=== PATIENT | female | born 1940 | race Caucasian/White ===

== ENCOUNTER 2022-11-13 17:14 | Emergency (ER) | payer MEDICARE, BC, SELFPAY ==
[2022-11-13 17:05] VITALS: BP 113/85; PULSE 71; RESP 20; TEMP 36.6; O2SAT 97; BMI 33.8
--- NOTE | 2022-11-13 17:14 | ED.GENADUL1 ---
HPI - General Adult General Chief complaint: Recheck/Abnormal Lab/Rx Stated complaint: bili drain issues Time Seen by Provider: 11/13/22 17:16 Source: patient Mode of arrival: ambulance Limitations: no limitations History of Present Illness HPI narrative: 82-year-old female presents because her biliary drain has not been draining. It seems like it's been like this for a few days. She doesn't seem to be complaining of abdominal pain. No fever or vomiting. She's not sure how long she's had any biliary drain, perhaps months but she's not sure. Related Data Allergies Allergy/AdvReac Type Severity Reaction Status Date / Time No Known Drug Allergies Allergy Verified 11/13/22 17:08 Review of Systems ROS Narrative A ten point review of systems is negative except as noted above. Exam Narrative Exam Narrative: Nurses note and vital signs reviewed and patient is not hypoxic. General: The patient appears well and in no apparent distress. Patient is resting comfortably on cart. Skin: Warm, dry, no pallor noted. There is no rash noted. Head: Normocephalic, atraumatic Eye: Normal conjunctiva, no drainage Ears, Nose, Mouth, and Throat: oral mucosa is moist. Nares patent. Cardiovascular: Regular Rate and Rhythm Respiratory: Patient is in no distress, no accessory muscle use, lungs are clear to auscultation, no wheezing, rales or rhonchi Back: non-tender GI: Normal bowel sounds, no tenderness to palpation, no masses appreciated. No rebound, guarding, or rigidity noted. Musculoskeletal: The patient has no evidence of calf tenderness, no pitting edema, symmetrical pulses noted bilaterally Neurological: A&O, normal speech Psychiatric: Cooperative Constitutional Vital Signs - 24 hr 11/13/22 17:05 Temperature 98 F Pulse Rate [Monitor] 71 Respiratory Rate 20 Blood Pressure [Left Arm] 113/85 H Pulse Oximetry 97 Oxygen Delivery Method Room Air Course Vital Signs Vital signs: Vital Signs Temperature 98 F 11/13/22 17:05 Pulse Rate 71 11/13/22 17:05 Respiratory Rate 20 11/13/22 17:05 Blood Pressure 113/85 H 11/13/22 17:05 Pulse Oximetry 97 11/13/22 17:05 Oxygen Delivery Method Room Air 11/13/22 17:05 Temperature 98 F 11/13/22 17:05 Pulse Rate 71 11/13/22 17:05 Respiratory Rate 20 11/13/22 17:05 Blood Pressure 113/85 H 11/13/22 17:05 Pulse Oximetry 97 11/13/22 17:05 Oxygen Delivery Method Room Air 11/13/22 17:05 Medical Decision Making MDM Narrative Medical decision making narrative: the patient's biliary drain is not functioning. Blood work is ordered and gallbladder ultrasound is ordered as well. The patient is signed out to Dr. Horton. Differential Diagnosis Differential Diagnosis: biliary drain blockage, biliary drain placement issue Lab Data Lab results reviewed: Yes I reviewed the patient's lab results Labs: Lab Results 11/13/22 Range/Units 17:45 WBC 9.6 (4.0-11.0) 10^3/uL RBC 3.19 L (4.20-5.40) 10^6/uL Hgb 9.5 L (12.0-16.0) g/dL Hct 29.7 L (36.0-48.0) % MCV 93.1 (81.0-99.0) fL MCH 29.8 (26.7-34.0) pg MCHC 32.0 (29.9-35.2) g/dL RDW 17.8 H (11.0-15.0) % Plt Count 245 (150-450) 10^3/uL MPV 9.8 (9.5-13.5) fL Neut % (Auto) 64.7 (43.0-75.0) % Lymph % (Auto) 24.2 (20.5-60.0) % [place] % (Auto) 9.4 (1.7-12.0) % Eos % (Auto) 0.9 (0.9-7.0) % Baso % (Auto) 0.4 (0.2-2.0) % Neut # (Auto) 6.2 (1.4-6.5) 10^3/uL Lymph # (Auto) 2.3 (1.2-3.8) 10^3/uL [place] # (Auto) 0.9 H (0.3-0.8) 10^3/uL Eos # (Auto) 0.1 (0.0-0.7) 10^3/uL Baso # (Auto) 0.0 (0.0-0.1) 10^3/uL Abs Immat Gran (auto) 0.04 H (0.00-0.03) 10^3/uL Imm/Tot Granulo (auto) 0.4 (0.0-0.5) % Sodium 136 (136-145) mmol/L Potassium 3.8 (3.5-5.1) mmol/L Chloride 97 L (98-107) mmol/L Carbon Dioxide 35.7 H (21.0-32.0) mmol/L Anion Gap 7.1 BUN 36.0 H (7.0-18.0) mg/dL Creatinine 1.65 H (0.55-1.02) mg/dL Est GFR ( Amer) 36 L (>=60) Est GFR (Non-Af Amer) 30 L (>=60) BUN/Creatinine Ratio 21.8 Glucose 117 H (74-106) mg/dL Calcium 9.0 (8.5-10.1) mg/dL Total Bilirubin 2.0 H (0.2-1.0) mg/dL AST 38 H (15-37) U/L ALT 24 (14-59) U/L Alkaline Phosphatase 274 H (46-116) U/L Total Protein 6.4 (6.4-8.2) g/dL Albumin 2.0 L (3.4-5.0) g/dL Globulin 4.4 g/dL Albumin/Globulin Ratio 0.5 Lipase 313.0 (73.0-393.0) U/L Discharge Plan Discharge Chief Complaint: Recheck/Abnormal Lab/Rx 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
--- NOTE | 2022-11-13 17:37 | PC.NURSE ---
Patient arrives from the [facility] with c/o biliary tube drainage issue. patient states, i've been telling the staff for 4 days that there is something wrong with the tube, but they would not listen. Patient reports that when the nurses attempt to flush the drain, it comes back out at me. patient reprot staff at the [facility] lost part of the tubing system. Patient endorses feeling some increase in distention over right lower quadrant since the drain stopped functioning and noticed that her eyes look more yellow. Patient noted to have general jaundiced appearance. Patient reports drain was placed at [facility]. This nurse attempted to call [facility] for report, spoke to Fadia, who states, the patient says its been going on for 4 days, but i don't see documentation on it. Fadia unable to give any information on I&O numbers for biliary drainage output and is poor historian on patient stating, i don't know, I've been gone all week, i am in the middle of a lot of things and dinner right now, when this nurse attempts to obtain more information about patient.
[2022-11-13 17:52] LABS: Basophils Percent Auto 0.4 % (0.2-2.0); Eosinophils Absolute Auto 0.1 10^3/uL (0.0-0.7); Eosinophils Percent Auto 0.9 % (0.9-7.0); Hematocrit 29.7 % (36.0-48.0); Hemoglobin 9.5 g/dL (12.0-16.0); Immature Granulocytes Abs Auto 0.04 10^3/uL (0.00-0.03); Immature Granulocytes Pct Auto 0.4 % (0.0-0.5); Lymphocytes Absolute Auto 2.3 10^3/uL (1.2-3.8); Lymphocytes Percent Auto 24.2 % (20.5-60.0); Mean Corpuscular Hemoglobin 29.8 pg (26.7-34.0); Mean Corpuscular Volume 93.1 fL (81.0-99.0); Mean Platelet Volume 9.8 fL (9.5-13.5); Monocytes Absolute Auto 0.9 10^3/uL (0.3-0.8); Monocytes Percent Auto 9.4 % (1.7-12.0); Neutrophils Absolute Auto 6.2 10^3/uL (1.4-6.5); Neutrophils Percent Auto 64.7 % (43.0-75.0); Platelet Count 245 10^3/uL (150-450); Red Blood Count 3.19 10^6/uL (4.20-5.40); Red Cell Distribution Width 17.8 % (11.0-15.0); White Blood Count 9.6 10^3/uL (4.0-11.0)
[2022-11-13 18:06] LABS: Alanine Aminotransferase 24 U/L (14-59); Albumin Globulin Ratio 0.5; Alkaline Phosphatase 274 U/L (46-116); Anion Gap 7.1; Aspartate Amino Transferase 38 U/L (15-37); BUN Creatinine Ratio 21.8; Carbon Dioxide 35.7 mmol/L (21.0-32.0); Chloride 97 mmol/L (98-107); Estimated GFR (African America 36 (>=60); Estimated GFR (Non-African Ame 30 (>=60); Globulin 4.4 g/dL; Glucose 117 mg/dL (74-106); Potassium 3.8 mmol/L (3.5-5.1); Sodium 136 mmol/L (136-145); Total Protein 6.4 g/dL (6.4-8.2)
--- NOTE | 2022-11-13 18:28 | US_ITS ---
[address] [address] Patient Name: BEATA MAC MRN: [id number] date: 1940 Sex: F Assigned Patient Location: ER Current Patient Location: .[facility] Accession/Order Number: [id number] Exam Date: 11/13/2022 19:11 Report Date: 11/13/2022 21:41 At the request of: GERI FARIA Procedure: US right upper quadrant RIGHT UPPER QUADRANT ULTRASOUND HISTORY: Suspected malfunctioning biliary drain COMPARISON: CT abdomen and pelvis 10/20/2022 TECHNIQUE: Sonography of the right upper quadrant was performed. Images were obtained and stored in a permanent archive. RESULTS: Pancreas: Normal sonographic appearance. Portions obscured: tail Liver: Echotexture: Normal, homogeneous. Echogenicity: Normal Surface contour: Smooth Lesions: None. Biliary: No intrahepatic biliary duct dilation. CBD: 5 cm at the hilum. Gallbladder: Fluid-filled distended gallbladder -Contents: Sludge present -Wall: Gallbladder wall thickening present -Other: No pericholecystic fluid. Positive Fofana sign. Right Kidney: No hydronephrosis. Ascites: Trace, perihepatic. Biliary drain catheter is noted adjacent to segment IV of the liver. IMPRESSION: 1. Distended gallbladder with moderate amount of sludge and mild wall thickening. Reported positive sonographic Fofana's sign. 2. Partially imaged biliary drain and trace perihepatic ascites. Electronically authenticated by: WILDA MCNAMARA Date: 11/13/2022 21:41
--- NOTE | 2022-11-13 19:08 | PC.NURSE ---
This nurse assumed care for pt Report recieved from LENI Munoz Pt currently resting comfortably with family at bedside Pt and family aware of plan for gallbladder ultrasound Pt does not appear to be in any discomfort and denies needs or questions at this time
--- NOTE | 2022-11-13 19:25 | PC.NURSE ---
US at bedside
--- NOTE | 2022-11-13 20:11 | PC.NURSE ---
US just left patients room Pt still resting comfortable denies needs at this time
--- NOTE | 2022-11-13 21:37 | ED_ITS ---
HPI - General Adult General Chief complaint: Recheck/Abnormal Lab/Rx Stated complaint: bili drain issues Time Seen by Provider: 11/13/22 17:16 Source: patient Mode of arrival: ambulance Limitations: no limitations History of Present Illness HPI narrative: 82-year-old female was signed out to me at shift change. She is here with her granddaughter. Granddaughter provides the recent history. The patient was at [facility] for a cardiac ablation and there was a complication. She had to undergo surgery and ended up with jaundice and a bilirubin at 20. They did not think she was a good surgical candidate for cholecystectomy and a biliary stent was placed. The stent has been in place for the past 4 weeks and 2 days. She initially had bloody and bilious output from the stent and then just bilious output. Stent was supposed to be flushed by the nursing staff where she currently resides but some of the staff was unfamiliar with the procedure and it was not flushed. For at least the past 4 days there has not been any output from the biliary stent. The patient was seen and evaluated. She is resting comfortably. She denies any abdominal pain or nausea. Her bilirubin today is 2. An ultrasound of the right upper quadrant was ordered due to her history of renal insufficiency. According to the granddaughter the stent is supposed to be in place for 6-8 weeks. The patient states she is feeling well and is feeling much better than she has been in the past several weeks. Ultrasound of the right upper quadrant shows a normal liver with no intrahepatic hepatic biliary ductal dilatation with common bile duct, fluid-filled distended gallbladder with sludge and gallbladder wall thickening with no cholecystic fluid. The surgeon of record, Dr. 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 Mejias, general surgery naval aircre[employer] who suggest that the patient can be discharged back to the extended care facility and can be followed up as an outpatient. I explained to the patient and daughter that as she is not having any signs of jaundice at this time they may remove the catheter when she is seen in follow-up. I encouraged them to return to the urgency department for increasing pain, fever, nausea vomiting, jaundice or any concerns. They're in agreement with this plan. Related Data Allergies Allergy/AdvReac Type Severity Reaction Status Date / Time No Known Drug Allergies Allergy Verified 11/13/22 17:08 Exam Constitutional Vital Signs - 24 hr 11/13/22 17:05 Temperature 98 F Pulse Rate [Monitor] 71 Respiratory Rate 20 Blood Pressure [Left Arm] 113/85 H Pulse Oximetry 97 Oxygen Delivery Method Room Air Course Vital Signs Vital signs: Vital Signs Temperature 98 F 11/13/22 17:05 Pulse Rate 71 11/13/22 17:05 Respiratory Rate 20 11/13/22 17:05 Blood Pressure 113/85 H 11/13/22 17:05 Pulse Oximetry 97 11/13/22 17:05 Oxygen Delivery Method Room Air 11/13/22 17:05 Temperature 98 F 11/13/22 17:05 Pulse Rate 71 11/13/22 17:05 Respiratory Rate 20 11/13/22 17:05 Blood Pressure 113/85 H 11/13/22 17:05 Pulse Oximetry 97 11/13/22 17:05 Oxygen Delivery Method Room Air 11/13/22 17:05 Medical Decision Making MDM Narrative Medical decision making narrative: See HPI/transfer note Lab Data Labs: Lab Results 11/13/22 Range/Units 17:45 WBC 9.6 (4.0-11.0) 10^3/uL RBC 3.19 L (4.20-5.40) 10^6/uL Hgb 9.5 L (12.0-16.0) g/dL Hct 29.7 L (36.0-48.0) % MCV 93.1 (81.0-99.0) fL MCH 29.8 (26.7-34.0) pg MCHC 32.0 (29.9-35.2) g/dL RDW 17.8 H (11.0-15.0) % Plt Count 245 (150-450) 10^3/uL MPV 9.8 (9.5-13.5) fL Neut % (Auto) 64.7 (43.0-75.0) % Lymph % (Auto) 24.2 (20.5-60.0) % Dickenson % (Auto) 9.4 (1.7-12.0) % Eos % (Auto) 0.9 (0.9-7.0) % Baso % (Auto) 0.4 (0.2-2.0) % Neut # (Auto) 6.2 (1.4-6.5) 10^3/uL Lymph # (Auto) 2.3 (1.2-3.8) 10^3/uL Dickenson # (Auto) 0.9 H (0.3-0.8) 10^3/uL Eos # (Auto) 0.1 (0.0-0.7) 10^3/uL Baso # (Auto) 0.0 (0.0-0.1) 10^3/uL Abs Immat Gran (auto) 0.04 H (0.00-0.03) 10^3/uL Imm/Tot Granulo (auto) 0.4 (0.0-0.5) % Sodium 136 (136-145) mmol/L Potassium 3.8 (3.5-5.1) mmol/L Chloride 97 L (98-107) mmol/L Carbon Dioxide 35.7 H (21.0-32.0) mmol/L Anion Gap 7.1 BUN 36.0 H (7.0-18.0) mg/dL Creatinine 1.65 H (0.55-1.02) mg/dL Est GFR ( Amer) 36 L (>=60) Est GFR (Non-Af Amer) 30 L (>=60) BUN/Creatinine Ratio 21.8 Glucose 117 H (74-106) mg/dL Calcium 9.0 (8.5-10.1) mg/dL Total Bilirubin 2.0 H (0.2-1.0) mg/dL AST 38 H (15-37) U/L ALT 24 (14-59) U/L Alkaline Phosphatase 274 H (46-116) U/L Total Protein 6.4 (6.4-8.2) g/dL Albumin 2.0 L (3.4-5.0) g/dL Globulin 4.4 g/dL Albumin/Globulin Ratio 0.5 Lipase 313.0 (73.0-393.0) U/L Discharge Plan Discharge Chief Complaint: Recheck/Abnormal Lab/Rx 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 Return to the emergency department for increasing pain, fever, nausea vomiting, jaundice or any concerns. Stand Alone Forms: Portal Instructions Referrals: Chi Jaimes MD [Primary Care Provider] - 1 week
== END 2022-11-13 23:10 ==
PROVIDERS: Emergency Medicine; Emergency Provider Emergency Medicine; PCP Family Medicine
DX: T85.698A Other mechanical complication of other specified internal prosthetic devices, implants and grafts, initial encounter (principal)
CPT/HCPCS: 36415; 76705; 80053; 83690; 85025; 99285

== ENCOUNTER 2022-12-24 07:41 | Day surgery (SDC) | payer MEDICARE, BC, SELFPAY ==
--- NOTE | 2022-12-24 07:49 | FL_ITS ---
The [address] [address] Patient Name: BEATA MAC MRN: [id number] date: 1940 Sex: F Assigned Patient Location: [place] Current Patient Location: [place] Accession/Order Number: [id number] Exam Date: 12/24/2022 08:10 Report Date: 12/24/2022 10:51 At the request of: NON-STAFF PHYSICIAN Procedure: FL fluoroscopy <1hr EXAMINATION: FL fluoroscopy <1hr HISTORY: Confirm Placement Of T Tube COMPARISON: No relevant comparison available. FLUOROSCOPY TIME: Fluoro time measures 0.5 minutes and 7 images were obtained. TECHNIQUE: Standard level fluoroscopic mode of operation utilized. FINDINGS: 1.5 cc Omnipaque 300 was injected through patient's catheter which is coiled within the gallbladder. Contrast was seen within the gallbladder, cystic duct and common bile duct with antegrade flow into the small bowel and retrograde flow into the liver. FL/FL fluoroscopy <1hr IMPRESSION: 1. Catheter remains coiled within the gallbladder. 2. Patent cystic and common bile duct. Electronically authenticated by: MAY MATTHEWS Date: 12/24/2022 10:51
--- NOTE | 2022-12-24 07:49 | XR_ITS ---
The [address] [address] Patient Name: BEATA MAC MRN: [id number] date: 1940 Sex: F Assigned Patient Location: [place] Current Patient Location: [place] Accession/Order Number: [id number] Exam Date: 12/24/2022 08:10 Report Date: 12/24/2022 10:51 At the request of: NON-STAFF PHYSICIAN Procedure: XR cholangiogram t tube EXAMINATION: FL fluoroscopy <1hr HISTORY: Confirm Placement Of T Tube COMPARISON: No relevant comparison available. FLUOROSCOPY TIME: Fluoro time measures 0.5 minutes and 7 images were obtained. TECHNIQUE: Standard level fluoroscopic mode of operation utilized. FINDINGS: 1.5 cc Omnipaque 300 was injected through patient's catheter which is coiled within the gallbladder. Contrast was seen within the gallbladder, cystic duct and common bile duct with antegrade flow into the small bowel and retrograde flow into the liver. XR/XR cholangiogram t tube IMPRESSION: 1. Catheter remains coiled within the gallbladder. 2. Patent cystic and common bile duct. Electronically authenticated by: MAY MATTHEWS Date: 12/24/2022 10:51
[2022-12-24 09:25] VITALS: BMI 27.1
== END 2022-12-24 09:00 ==
PROVIDERS: Radiology Diagnostic Radiology; PCP Family Medicine
DX: Z96.89 Presence of other specified functional implants (principal)
CPT/HCPCS: 47531; 76000; Q9967

== ENCOUNTER 2023-01-28 11:26 | Inpatient (IN) | payer MEDICARE, BC, SELFPAY ==
[2023-01-28] VITALS (83 sets, daily range): BP systolic 65–129; BP diastolic 42–93; PULSE 0–135; RESP 11–30; TEMP 36.5–36.8; O2SAT 85–100; BMI 31.4; BMI 32.9
--- NOTE | 2023-01-28 11:34 | ED.SOB1 ---
HPI - SOB/Dyspnea General Chief Complaint: Shortness of Breath/Dyspnea Stated Complaint: Cough SOB Time Seen by Provider: 01/28/23 11:34 History of Present Illness HPI Narrative: Patient presents to emergency department complaining of dyspnea. Patient states that short of breath and has been wheezing. She has increased lower extremity edema. She states she was nauseated and vomited one time this morning. She's had it productive cough for several days. Yesterday she was started on Levaquin had 1 dose yesterday and 1 today. Patient was recently discharged from the [facility] after a three-month stay from complications after at watchman procedure. Patient was given Solu-Medrol and a DuoNeb treatment in route. Patient does not have a history of lung disease. She takes Bumex 2 mg daily has not had any of her doses today. Family also states she was recently diagnosed with kidney disease Stage III. Related Data Home Medications Medication Instructions Recorded Confirmed Metoprolol 12.5 mg PO DAILY 12/24/22 12/24/22 Potassium chloride 40 meq PO DAILY 12/24/22 12/24/22 apixaban 2.5 mg tablet (Eliquis) 2.5 mg PO BID 12/24/22 12/24/22 bumetanide 2 mg tablet 2 mg PO DAILY 12/24/22 12/24/22 magnesium oxide 400 mg PO BID 12/24/22 12/24/22 polyethylene glycol 3350 17 17 g PO DAILY 12/24/22 12/24/22 gram/dose oral powder Allergies Allergy/AdvReac Type Severity Reaction Status Date / Time No Known Drug Allergies Allergy Verified 11/13/22 17:08 Review of Systems ROS Status of ROS 10 or more systems reviewed and unremarkable except as noted in history and below [facility] Medical History (Updated 01/28/23 @ 13:50 by Larissa Denson MD) Surgical History (Updated 12/24/22 @ 09:22 by Karey Turner) Social History Smoking status: Never smoker Exam Narrative Exam Narrative: Nurses notes and vital signs reviewed and patient is not hypoxic. General: Nontoxic,Elderly, frail, chronically ill and in no apparent distress. Skin: Warm, dry, mild pallor noted. No Rash Head: Normocephalic, atraumatic. Neck: Supple, non-tender. Eye: Pupils are equal, round and EOMI. No scleral icterus. Ears, Nose, Mouth, and Throat: TM clear, no posterior oropharynx erythema or nasal mucosal hypertrophy, uvula is mid-line Oral mucosa is moist Cardiovascular: Irregularly irregular tachycardia without murmur, gallop or rub. Respiratory: No accessory muscle use or respiratory distress. Lungs Lateral coarse crackles at the bases with expiratory wheeze worse on the right. Chest Wall: no tenderness Back: No midline thoracic or lumbar vertebral tenderness. No CVA tenderness Musculoskeletal: normal ROM, no calf or popliteal tenderness,+3 bilateral lower extremity edema/swelling GI: Abdomen is soft, non-distended. Normal bowel sounds. No tenderness to palpation. No rebound, guarding, or rigidity noted. Neurological: A&O x4. No cranial nerve dysfunction observed. No truncal ataxia. Moves all extremities. Sensation intact. Psychiatric: Cooperative and interactive. Normal mood and affect. Constitutional Vital Signs, click to edit/add: Last Vital Signs Temp 98 F 01/28/23 11:32 Pulse 107 H 01/28/23 13:00 Resp 16 01/28/23 13:00 BP 114/89 01/28/23 11:37 Pulse Ox 99 01/28/23 13:00 O2 Del Method Room Air 01/28/23 11:32 Course Vital Signs Vital signs: Vital Signs Temperature 98 F 01/28/23 11:32 Pulse Rate 125 H 01/28/23 11:32 Respiratory Rate 24 01/28/23 11:32 Blood Pressure 114/89 01/28/23 11:32 Pulse Oximetry 99 01/28/23 11:32 Oxygen Delivery Method Room Air 01/28/23 11:32 Temperature 98 F 01/28/23 11:32 Pulse Rate 107 H 01/28/23 13:00 Respiratory Rate 16 01/28/23 13:00 Blood Pressure 114/89 01/28/23 11:37 Pulse Oximetry 99 01/28/23 13:00 Oxygen Delivery Method Room Air 01/28/23 11:32 MDM - SOB/Dyspnea MDM Narrative Medical decision making narrative: iv established. The patient does not require Supplementary oxygen. Patient was given 2 mg of bumex, started on Zosyn, Levaquin. all RESULTS were discussed with patient and family. The patient was discussed with Dr. Jaimes for admission. Differential Diagnosis Differential diagnosis: Likely congestive heart failure Medical Records Attestation: I reviewed the patient's medical records. Lab Data Attestation: I reviewed the patient's lab results. Labs: Lab Results 01/28/23 Range/Units 12:30 WBC 9.4 (4.0-11.0) 10^3/uL RBC 3.99 L (4.20-5.40) 10^6/uL Hgb 11.6 L (12.0-16.0) g/dL Hct 37.5 (36.0-48.0) % MCV 94.0 (81.0-99.0) fL MCH 29.1 (26.7-34.0) pg MCHC 30.9 (29.9-35.2) g/dL RDW 18.2 H (11.0-15.0) % Plt Count 260 (150-450) 10^3/uL MPV 9.8 (9.5-13.5) fL Neut % (Auto) 85.9 H (43.0-75.0) % Lymph % (Auto) 6.8 L (20.5-60.0) % Stevens % (Auto) 6.9 (1.7-12.0) % Eos % (Auto) 0.0 L (0.9-7.0) % Baso % (Auto) 0.1 L (0.2-2.0) % Neut # (Auto) 8.1 H (1.4-6.5) 10^3/uL Lymph # (Auto) 0.6 L (1.2-3.8) 10^3/uL Stevens # (Auto) 0.7 (0.3-0.8) 10^3/uL Eos # (Auto) 0.0 (0.0-0.7) 10^3/uL Baso # (Auto) 0.0 (0.0-0.1) 10^3/uL Abs Immat Gran (auto) 0.03 (0.00-0.03) 10^3/uL Imm/Tot Granulo (auto) 0.3 (0.0-0.5) % Sodium 138 (136-145) mmol/L Potassium 3.8 (3.5-5.1) mmol/L Chloride 98 (98-107) mmol/L Carbon Dioxide 32.7 H (21.0-32.0) mmol/L Anion Gap 11.1 BUN 39.0 H (7.0-18.0) mg/dL Creatinine 2.35 H (0.55-1.02) mg/dL Est GFR ( Amer) 24 L (>=60) Est GFR (Non-Af Amer) 20 L (>=60) BUN/Creatinine Ratio 16.6 Glucose 126 H (74-106) mg/dL Calcium 9.9 (8.5-10.1) mg/dL Total Bilirubin 1.8 H (0.2-1.0) mg/dL AST 51 H (15-37) U/L ALT 34 (14-59) U/L Alkaline Phosphatase 171 H (46-116) U/L Troponin I High Sens 41.6 (4.0-51.3) pg/mL NT-Pro-B Natriuret Pep >14866.0 H* (<=1800.0) pg/mL Total Protein 6.7 (6.4-8.2) g/dL Albumin 3.0 L (3.4-5.0) g/dL Globulin 3.7 g/dL Albumin/Globulin Ratio 0.8 ECG Data Attestation: I personally reviewed and interpreted this ECG as follows: Discharge Plan Discharge Chief Complaint: Shortness of Breath/Dyspnea Clinical Impression: Congestive heart failure, Atrial fibrillation, Chronic kidney disease (CKD), Pneumonia Patient Disposition: Admitted As Inpatient Time of Disposition Decision: 13:50 Condition: Good Prescriptions / Home Meds: No Action bumetanide 2 mg tablet 2 mg PO DAILY Eliquis 2.5 mg tablet 2.5 mg PO BID magnesium oxide 400 mg magnesium tablet 400 mg PO BID Metoprolol 12.5 mg PO DAILY polyethylene glycol 3350 17 gram/dose powder 17 g PO DAILY Potassium chloride 40 meq PO DAILY
--- NOTE | 2023-01-28 11:54 | XR_ITS ---
The [address] [address] Patient Name: BEATA MAC MRN: [id number] date: 1940 Sex: F Assigned Patient Location: ER Current Patient Location: ER Accession/Order Number: [id number] Exam Date: 01/28/2023 12:20 Report Date: 01/28/2023 12:37 At the request of: BENJAMIN GRAHAM Procedure: XR chest 1V EXAM: XR chest 1V at 1230 hours HISTORY: dyspnea COMPARISON: 08/24/2022 TECHNIQUE: AP upright portable chest x-ray FINDINGS: Opacities are seen at both lung bases, indicating atelectasis or infiltrates. These are accompanied by bilateral effusions. The upper lungs are clear. The heart appears mildly enlarged without overt cardiac decompensation. Multiple sternal wire sutures are present as well as a left-sided pacemaker. The osseous structures are grossly intact. XR/XR chest 1V IMPRESSION: Atelectasis or infiltrates at both lung bases accompanied by small bilateral effusions. The overall appearance is slightly worse than seen in the prior study. Electronically authenticated by: BRYAN NICHOLE Date: 01/28/2023 12:37
--- NOTE | 2023-01-28 11:54 | ECG_ITS ---
The [facility] Test Date: 2023-01-28 Pat Name: BEATA MAC Department: Room: - Gender: Female Head Silverman: : 1940 Requested By: CATHLEEN BOO Order Number: [id number] Reading MD: CATHLEEN BOO Measurements Intervals [place] Rate: 118 P: -89580 NH: -69808 QRS: 133 QRSD: 112 T: 244 QT: 328 QTc: 398 Interpretive Statements 32040 Atrial fibrillation with rapid ventricular response 3114 Cannot rule out anterior myocardial infarction, age undetermined [address] depression, probably digitalis effect 13559 Twave abnormality, possible inferior ischemia or digitalis effect 5120 Possible right ventricular hypertrophy 9150 abnormal ECG No previous ECG available for comparison Electronically Signed On 01-31-2023 7:42:02 EDT by CATHLEEN BOO
[2023-01-28] MEDS: METOPROLOL TARTRATE 5 MG/5 ML VIAL IVP (12:16)
[2023-01-28] MEDS: BUMETANIDE 1 MG/4 ML VIAL 2 MG IVP (12:16)
[2023-01-28 12:46] LABS: Basophils Percent Auto 0.1 % (0.2-2.0); Hematocrit 37.5 % (36.0-48.0); Hemoglobin 11.6 g/dL (12.0-16.0); Immature Granulocytes Abs Auto 0.03 10^3/uL (0.00-0.03); Immature Granulocytes Pct Auto 0.3 % (0.0-0.5); Lymphocytes Absolute Auto 0.6 10^3/uL (1.2-3.8); Lymphocytes Percent Auto 6.8 % (20.5-60.0); Mean Corpuscular HGB Conc 30.9 g/dL (29.9-35.2); Mean Corpuscular Hemoglobin 29.1 pg (26.7-34.0); Mean Platelet Volume 9.8 fL (9.5-13.5); Monocytes Absolute Auto 0.7 10^3/uL (0.3-0.8); Monocytes Percent Auto 6.9 % (1.7-12.0); Neutrophils Absolute Auto 8.1 10^3/uL (1.4-6.5); Neutrophils Percent Auto 85.9 % (43.0-75.0); Platelet Count 260 10^3/uL (150-450); Red Blood Count 3.99 10^6/uL (4.20-5.40); Red Cell Distribution Width 18.2 % (11.0-15.0); White Blood Count 9.4 10^3/uL (4.0-11.0)
[2023-01-28] MEDS: LEVOFLOXACIN IN DEXTROSE 5 % 500 MG/100 ML PIGGYBACK 100 MG IV (13:01)
[2023-01-28 13:04] LABS: Alanine Aminotransferase 34 U/L (14-59); Albumin Globulin Ratio 0.8; Alkaline Phosphatase 171 U/L (46-116); Anion Gap 11.1; Aspartate Amino Transferase 51 U/L (15-37); BUN Creatinine Ratio 16.6; Bilirubin Total 1.8 mg/dL (0.2-1.0); Calcium 9.9 mg/dL (8.5-10.1); Carbon Dioxide 32.7 mmol/L (21.0-32.0); Chloride 98 mmol/L (98-107); Estimated GFR (African America 24 (>=60); Estimated GFR (Non-African Ame 20 (>=60); Globulin 3.7 g/dL; Glucose 126 mg/dL (74-106); Potassium 3.8 mmol/L (3.5-5.1); Sodium 138 mmol/L (136-145); Total Protein 6.7 g/dL (6.4-8.2); Troponin I High Sensitivity 41.6 pg/mL (4.0-51.3)
[2023-01-28 13:12] LABS: NT Pro B Type Natriuretic Pept >35000.0 pg/mL (<=1800.0)
[2023-01-28] MEDS: PIPERACILLIN SODIUM/TAZOBACTAM 3.375 GM in 0.9 % SODIUM CHLORIDE 50 ML IV ×2 (14:04→21:20)
[2023-01-28 14:28] LABS: Lactate/Lactic Acid 3.3 mmol/L (0.4-2.0)
--- NOTE | 2023-01-28 14:40 | CA_ITS ---
Patient: BEATA MAC Exam Date: 01/29/2023 : 1940 Gender:F Ordering : DR Chi Jaimes . Admission #: [id number] Family : Order #: [id number] CLICK HERE TO VIEW EXAM ECHOCARDIOGRAM REPORT PROCEDURE: CA ECHO DOPPLER COMPLETE INDICATIONS: Dyspnea, elevated BNP, atrial fibrillation, congestive heart failure, chronic kidney disease COMPARISON: None. DESCRIPTION: COMPLETE ECHOCARDIOGRAM Real-time transthoracic echocardiography with 2D, M-mode, spectral and color flow Doppler performed. QUALITY: Technical quality was good. LEFT VENTRICLE: Mildly dilated. Thickened septal wall. Severely reduced systolic function. LV EF: Severely reduced left ventricular ejection fraction, (15-20%). DIASTOLIC: Not adequately assessed due to heart rhythm. ATRIAL SEPTUM: LEFT ATRIUM: Severe dilatation. RIGHT ATRIUM: Severe dilatation. RIGHT VENTRICLE: Mild dilatation. Mildly reduced systolic function. TRICUSPID VALVE: Normal mobility and thickness. No stenosis with mild regurgitation. Doppler studies reveal severely (>60) elevated right sided pressures. RVSP 62 mmHg MITRAL VALVE: Moderately thickened with decreased mobility. No evidence of mitral valve stenosis. Mild mitral annular calcification. Moderate to severe mitral regurgitation. AORTIC VALVE: Normal trileaflet appearance. Mildly calcified aortic valve. Mildly diminished mobility. No aortic valve stenosis. No aortic regurgitation. AORTIC ROOT: Normal diameter and appearance. PULMONIC VALVE: Normal thickness and mobility. No stenosis. Trivial regurgitation. PERICARDIUM: No evidence of pericardial effusion. IVC: Dilated IVC (2.5 cm) with no collapse. PLEURA: Left pleural effusion. CONCLUSION: 1. The left ventricle is mildly dilated and exhibits severely reduced systolic function. LVEF is 15 to 20%. 2. The right ventricle is mildly dilated with mildly reduced systolic function. 3. Moderate to severe mitral regurgitation. 4. Mild tricuspid regurgitation. 5. Severely elevated right-sided pressures. RVSP is 62 mmHg. 6. Large left pleural effusion is seen. Adult Echocardiography Procedure Report Left Ventricle LVEDD (3.7 - 5.6 cm): 4.34 cm LVESD (2.2 - 4.0 cm): 4.04 cm LVIVS thickness (0.6 - 1.2 cm): 1.09 cm LVPW thickness (0.5 - 1.0 cm): 0.83 cm LVOT Max Gradient: 2.92 mm[Hg], 2.20 mm[Hg] LVOT Area (cm2): 0.80 m/s Peak Velocity (LVOT): 0.85 m/s, 0.74 m/s Mean Velocity (LVOT): 0.49 m/s LVOT Diameter 2.20 cm Left Atrium LA Volume Index (2D A2C): 57.63 ml/m2 Left Atrium Systolic Dimension: 4.17 cm Mitral Valve Mitral Valve E-Wave Peak Velocity: 1.35 m/s Right Ventricle Aorta AO Root Diam: 3.04 cm Ascending Ao Diam: 2.70 cm Aortic Valve AoV Area (Peak Carrington): 2.00 cm2, 1.90 cm2, 1.81 cm2 AoV Area (VTI): 1.66 cm2, 1.39 cm2, 1.53 cm2 Peak Velocity(Antegrade Flow): 1.72 m/s, 1.56 m/s, 1.27 m/s Peak Gradient(Antegrade Flow): 11.81 mm[Hg], 9.74 mm[Hg], 6.49 mm[Hg] Mean Velocity(Antegrade Flow): 1.08 m/s, 0.99 m/s, 0.96 m/s Mean Gradient(Antegrade Flow): 5.42 mm[Hg], 4.55 mm[Hg], 3.98 mm[Hg] Velocity Time Integral: 27.83 cm, 24.45 cm, 16.57 cm Tricuspid Valve Peak Velocity (Regurgitant Flow): 3.09 m/s, 2.95 m/s, 3.12 m/s, 3.41 m/s Pulmonic Valve Peak Velocity: 0.75 m/s Peak Gradient: 1.67 mm[Hg], 1.26 mm[Hg], 4.18 mm[Hg], 2.27 mm[Hg] Right Atrium Right Atrium Systolic Pressure: 49.05 ml, 49.05 ml Dictated by: Asif Rivera M.D. on 01/29/2023 at 17:40 Approved by: Asif Rivera M.D. on 01/29/2023 at 17:48
--- NOTE | 2023-01-28 14:51 | US_ITS ---
The [address] [address] Patient Name: BEATA MAC MRN: [id number] date: 1940 Sex: F Assigned Patient Location: ICU Current Patient Location: ICU Accession/Order Number: [id number] Exam Date: 01/28/2023 15:00 Report Date: 01/28/2023 15:55 At the request of: CATHLEEN BOO Procedure: US right upper quadrant EXAM: US right upper quadrant HISTORY: elevated lft COMPARISON: None. TECHNIQUE: Real-time Limited abdomen ultrasound. Findings: Evaluation of pancreas is limited due to overlying bowel gas. The visualized portions are unremarkable. Unremarkable hepatic parenchymal echotexture. No focal intrahepatic mass. The main portal vein is patent and demonstrates hepatopedal flow. The gallbladder contains sludge. Mild gallbladder wall thickening. No pericholecystic fluid. The technologist reports a negative sonographic Fofana's sign. No biliary ductal dilatation. The common bile duct measures 0.4 cm. The right kidney measures 9.2 cm. There is good corticomedullary differentiation. No renal stones or collecting system dilatation. No focal mass or perinephric fluid collection. Right pleural effusion. US/US right upper quadrant IMPRESSION: 1. Right pleural effusion. 2. Sludge within the gallbladder. Gallbladder wall thickening. No significant pericholecystic fluid noted technologist reports a negative sonographic Fofana's sign. If further evaluation is warranted, suggest HIDA scan for further evaluation. Electronically authenticated by: DERRELL ALCALA Date: 01/28/2023 15:55
[2023-01-28 16:07] LABS: Bilirubin Urine NEGATIVE (NEGATIVE); Blood Urine NEGATIVE (NEGATIVE); Clarity Urine CLEAR (CLEAR); Color Urine LT. YELLOW (YELLOW); Glucose Urine UA NEGATIVE (NEGATIVE); Ketones Urine NEGATIVE (NEGATIVE); Leukocyte Esterase Urine SMALL (NEGATIVE); Nitrite Urine NEGATIVE (NEGATIVE); Protein Urine NEGATIVE (NEG/TRACE); Specific Gravity Urine 1.015 (1.005-1.025); Urobilinogen Urine 0.2 EU/dL (0.2-1.0)
--- NOTE | 2023-01-28 16:10 | W.PM.WC ---
Wound Consult Note Assessment and Plan (1) Sacral decubitus ulcer, stage II: Plan Patient seen today for consult with open area to sacral/coccyx area. Patient with known open ulcer in this area after an extended stay at a different hospital. Per patient/family via bedside RN, this area is improving. Upon assessment, patient has 2 small open areas on sacral/coccyx area that when measured as one are 1.7cmx0.8cm. The more proximal open area has depth and has a sinus/tunnel. The sinus is 1.8cm@4:00 and goes underneath the more distal open area. The distal ulcer is 100% slough covered. Area will most likely open and communicate with proximal ulcer if deteriorates. Today, medihoney gel with applied to the ulcers. Covered with an allevyn foam dressing. An additional dressing was provided to the ICU today. Patient's bilateral heels are intact. She appears to have a flattened blister on her right posterior thigh that is flat and intact. No treatment needed. Photo taken and orders in chart. Recommendations: Medihoney gel to sacral/coccyx ulcers daily. Tuck ribbon of packing strip lightly into depth/tunnel of more proximal open area. Change packing daily. Cover with allevyn foam. May peel back allevyn to change packing and apply medihoney daily. OK to reuse allevyn if not soiled and change every 3 days. Air mattress overlay, air cushion to chair. Reposition frequently. Thank you for consult. Please call [phone] with any questions or concerns.
[2023-01-28] MEDS: BUMETANIDE 10 MG in 0.9 % SODIUM CHLORIDE 160 ML 20 MG IV (16:14)
[2023-01-28 16:19] LABS: SARS-CoV-2 Ag NEGATIVE (NEGATIVE)
[2023-01-28 16:36] LABS: Creatine Kinase 23 U/L (26-192); Creatine Kinase MB 0.86 ng/mL (<=3.60); Magnesium 1.4 mg/dL (1.8-2.4); Thyroid Stimulating Hormone <0.007 uIU/mL (0.358-3.740); Troponin I High Sensitivity 39.5 pg/mL (4.0-51.3)
[2023-01-28 16:40] LABS: Lactate/Lactic Acid 2.7 mmol/L (0.4-2.0)
[2023-01-28 16:55] LABS: RBC Urine 0-2 #/HPF (0-2)
[2023-01-28 16:56] LABS: Bacteria Urine TRACE #/HPF (NONE SEEN); Cast Seen? NONE SEEN #/LPF (NONE SEEN); Crystals Seen? None Seen #/HPF (None Seen); Mucus Urine NONE SEEN (NONE SEEN); Squamous Epithelial Cell Urine RARE #/LPF (NONE/RARE); Urine Culture Indicated ALREADY ORDERED
[2023-01-28] MEDS: PANTOPRAZOLE SODIUM 40 MG VIAL IV (17:00)
[2023-01-28] MEDS: CLINDAMYCIN PHOSPHATE/D5W 300 MG/50 ML PIGGYBACK 100 MG IV ×2 (17:00→21:21)
[2023-01-28] MEDS: BENZONATATE 100 MG CAPSULE 200 MG PO (17:08)
--- NOTE | 2023-01-28 17:13 | P.HP_ITS ---
H&P: HPI History of Present Illness Chief complaint: Cough SOB, AFIB, PNEUMONIA, CHF, CKD Narrative: Patient presented to the emergency with increasing shortness of breath. There was a call to the office with increasing swelling and shortness of breath the previous day, and a trial of oral diuretic, with no improvement having audible wheezes patient was referred to the emergency room. In the emergency room found to have bilateral opacities consistent with pneumonia but also elevated BNP. Positive UA. Patient admitted to the ICU. Review of Systems ROS Constitutional Denies: fever or chills Eyes Denies: change in vision Ears, nose, mouth, and throat Denies: throat pain Cardiovascular Reports: edema and swelling of feet/ankles; Denies: chest pain Respiratory Reports: shortness of breath, cough and wheezing Musculoskeletal Denies: back pain Integumentary/Breast Denies: rash PFSH [facility] Medical History (Updated 01/28/23 @ 13:50 by Larissa Denson MD) Surgical History (Updated 12/24/22 @ 09:22 by Karey Turner) Social History Smoking status: Never smoker Meds Home Medications and Allergies Home Medications Medication Instructions Recorded Confirmed Type Metoprolol 12.5 mg PO DAILY 12/24/22 01/28/23 History Potassium chloride 20 meq PO DAILY 12/24/22 01/28/23 History apixaban 2.5 mg tablet (Eliquis) 2.5 mg PO BID 12/24/22 01/28/23 History bumetanide 2 mg tablet 1 mg PO Q12H 12/24/22 01/28/23 History magnesium oxide 400 mg PO BID 12/24/22 01/28/23 History polyethylene glycol 3350 17 17 g PO DAILY 12/24/22 12/24/22 History gram/dose oral powder hydroxyzine pamoate 25 mg capsule 25 mg PO Q6H PRN anxiety 01/28/23 01/28/23 History levofloxacin 750 mg tablet 750 mg PO Q24H 01/28/23 01/28/23 History midodrine 5 mg tablet 5 mg PO BID PRN SBP <100 01/28/23 01/28/23 History Allergies Allergy/AdvReac Type Severity Reaction Status Date / Time No Known Drug Allergies Allergy Verified 11/13/22 17:08 Exam Constitutional Vital Signs, click to edit/add: Last Vital Signs Temp 98.2 F 01/28/23 14:09 Pulse 100 H 01/28/23 14:40 Resp 19 01/28/23 14:40 BP 112/71 01/28/23 14:40 Pulse Ox 99 01/28/23 14:40 O2 Del Method Room Air 01/28/23 14:40 [facility] Common normals: normocephalic Chest Common normals: inspection of chest normal Respiratory Effort & inspection: able to speak in complete sentences Auscultation: rhonchi and egophony Cardio Rate: tachycardic Rhythm: abnormal rhythm GI Common normals: Normal to inspection, nondistended, normoactive bowel sounds present Extremity Common normals: abnormal to inspection and pedal edema General: edema Results Labs Labs: Short CBC 01/28/23 Range/Units 12:30 WBC 9.4 (4.0-11.0) 10^3/uL Hgb 11.6 L (12.0-16.0) g/dL Hct 37.5 (36.0-48.0) % Plt Count 260 (150-450) 10^3/uL BMP 01/28/23 12:30 Sodium 138 Potassium 3.8 Chloride 98 Carbon Dioxide 32.7 H BUN 39.0 H Creatinine 2.35 H Glucose 126 H Calcium 9.9 Cardiac Enzymes 01/28/23 Range/Units 15:52 Total Creatine Kinase 23 L (26-192) U/L CK-MB (CK-2) 0.86 (<=3.60) ng/mL Liver Function 01/28/23 Range/Units 12:30 Total Bilirubin 1.8 H (0.2-1.0) mg/dL AST 51 H (15-37) U/L ALT 34 (14-59) U/L Alkaline Phosphatase 171 H (46-116) U/L Albumin 3.0 L (3.4-5.0) g/dL Urine 01/28/23 Range/Units 15:45 Urine Color Lt. 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 With her immune system being stressed with long-term illness and her age she is unlikely to develop significantly elevated white blood cell count. Need to treat aggressively with IV antibiotics [facility]. Complicated by acute combined congestive heart failure-IV antibiotics. As needed aerosols, try to obtain sputum sample. Acute combined congestive heart failure-check echocardiogram, check thyroid profile, monitor daily, check troponins, consult cardiology Elevated LFTs-this is a long-term issue for her. Some point she is post to have her gallbladder removed. Ultrasound right upper quadrant shows no acute cholecystitis. Monitor daily TSH significantly low-she does not take supplemental thyroid medications according to her current list. Will check with pharmacy. T4 and T3 levels are pending Iron deficiency anemia-monitor daily Morbid obesity-diet management Acute UTI-culture pending Bilateral pleural effusion secondary to acute combined congestive heart failure- monitor pulse oximetry, consider repeat chest x-ray Hypomagnesemia-supplement
[2023-01-28] MEDS: ONDANSETRON PF 4 MG/2 ML VIAL IV (17:32)
[2023-01-28 19:04] LABS: SARS-CoV-2 NAA NOT DETECTED (NOT DETECTE)
--- NOTE | 2023-01-28 19:54 | PC.NURSE ---
Patient's oxygen saturation on room air was 87%. Applied 2liters oxygen via nasal cannula. Will continue to monitor and titrate Patient's O2 sats.
[2023-01-28 20:13] LABS: Adenovirus NOT DETECTED (NOT DETECTE); Bordetella parapertussis NOT DETECTED (NOT DETECTE); Coronavirus 229E NOT DETECTED (NOT DETECTE); Coronavirus HKU1 NOT DETECTED (NOT DETECTE); Coronavirus NL63 NOT DETECTED (NOT DETECTE); Coronavirus OC43 NOT DETECTED (NOT DETECTE); Human Metapneumovirus NOT DETECTED (NOT DETECTE); Influenza A NOT DETECTED (NOT DETECTE); Influenza B NOT DETECTED (NOT DETECTE); Mycoplasma pneumoniae NOT DETECTED (NOT DETECTE); Parainfluenza Virus 1 NOT DETECTED (NOT DETECTE); Parainfluenza Virus 2 NOT DETECTED (NOT DETECTE); Parainfluenza Virus 3 NOT DETECTED (NOT DETECTE); Parainfluenza Virus 4 NOT DETECTED (NOT DETECTE); Respiratory Syncytial Virus NOT DETECTED (NOT DETECTE); SARS-CoV-2 NOT DETECTED (NOT DETECTE)
[2023-01-28 21:06] LABS: Human Rhinovirus/Enterovirus DETECTED (NOT DETECTE)
[2023-01-28] MEDS: POTASSIUM CHLORIDE 10 MEQ ER TABLET 20 MEQ PO (21:18)
[2023-01-28] MEDS: MAGNESIUM OXIDE 400 MG TABLET PO (21:18)
[2023-01-28] MEDS: APIXABAN 5 MG TABLET 2.5 MG PO (21:19)
[2023-01-28] MEDS: PROSTAT 15 GM PROTEIN/100 CAL 30 ML LIQUID PACKET FEED TUBE (21:20)
[2023-01-28] MEDS: L. ACIDOPHILUS/L.BULGARICUS 1 PACKET GRAN.PACK PO (21:20)
--- NOTE | 2023-01-28 21:53 | PC.NURSE ---
RT decreased oxygen to 1 liter d/t spo2 100%. Will titrate accordingly.
--- NOTE | 2023-01-28 21:56 | RESP.RT ---
Titrated to 1 lpm
--- NOTE | 2023-01-28 21:58 | PC.NURSE ---
Titrated oxygen off. Will continue to monitor.
--- NOTE | 2023-01-28 21:58 | RESP.RT ---
Titrated to 1 lpm
[2023-01-28] MEDS: LEVALBUTEROL HCL 0.63 MG/3 ML VIAL.NEB IH (22:46)
[2023-01-28] MEDS: IPRATROPIUM BROMIDE 0.5 MG/2.5 ML VIAL.NEB IH (22:46)
--- NOTE | 2023-01-28 23:31 | PC.NURSE ---
Applied 1 liter oxygen,SPO2 86%
--- NOTE | 2023-01-28 23:33 | PC.NURSE ---
1 liter intervention maintaining sats to 93-95 %
[2023-01-29] VITALS (98 sets, daily range): BP systolic 95–120; BP diastolic 65–90; PULSE 91–139; RESP 2–28; TEMP 36.3–36.7; O2SAT 86–100; BMI 32.8
[2023-01-29] MEDS: DILTIAZEM HCL 25 MG/5 ML VIAL 10 MG IV (00:38)
[2023-01-29] MEDS: CLINDAMYCIN PHOSPHATE/D5W 300 MG/50 ML PIGGYBACK 100 MG IV ×2 (04:22→16:06)
[2023-01-29] MEDS: MAGNESIUM OXIDE 400 MG TABLET PO ×2 (05:08→14:43)
[2023-01-29 05:41] LABS: Magnesium 1.4 mg/dL (1.8-2.4)
[2023-01-29 05:43] LABS: NT Pro B Type Natriuretic Pept >35000.0 pg/mL (<=1800.0)
--- NOTE | 2023-01-29 06:30 | PC.NURSE ---
Patient c/o right shoulder pain/weakness d/t arthritis
--- NOTE | 2023-01-29 07:26 | XR_ITS ---
The [address] [address] Patient Name: BEATA MAC MRN: [id number] date: 1940 Sex: F Assigned Patient Location: ICU Current Patient Location: ICU Accession/Order Number: [id number] Exam Date: 01/29/2023 08:00 Report Date: 01/29/2023 08:46 At the request of: CATHLEEN BOO Procedure: XR chest 2V EXAMINATION: XR chest 2V HISTORY: pneumonia, chf COMPARISON: XR chest 01/28/2023 FINDINGS: LUNGS: Dense infiltrates within the lung bases. Upper lung regions are clear. VASCULATURE: No increased pulmonary vasculature. PLEURA: Moderate bilateral pleural effusions. CARDIAC: No cardiomegaly or cardiac silhouette abnormality. MEDIASTINUM: Prior sternotomy. No abnormal widening. BONES: No fracture or visible bone lesion. OTHER: Stable cardiac pacer. XR/XR chest 2V IMPRESSION: 1. Grossly stable moderate bilateral pleural effusions and moderate bibasilar infiltrates versus atelectasis. Electronically authenticated by: MAY MATTHEWS Date: 01/29/2023 08:46
--- NOTE | 2023-01-29 07:28 | P.PN_ITS ---
Progress Note: Subjective Subjective Interval history: States she feels better, was coughing more overnight time. Still nonproductive, did have some hypoxia and placed on supplemental oxygen, although oxygen levels are improved this morning Exam Narrative Exam Narrative: Thinning hair on scalp Constitutional Vital Signs, click to edit/add: Last Vital Signs Temp 98.1 F 01/29/23 04:00 Pulse 113 H 01/29/23 06:30 Resp 21 01/29/23 06:30 BP 115/90 01/29/23 06:00 Pulse Ox 93 L 01/29/23 06:30 O2 Del Method Room Air 01/29/23 06:23 O2 Flow Rate 0.5 01/29/23 05:32 [facility] Common normals: normocephalic Chest Common normals: inspection of chest normal Respiratory Effort & inspection: able to speak in complete sentences Auscultation: rhonchi and egophony Cardio Rate: tachycardic Rhythm: abnormal rhythm GI Common normals: Normal to inspection, nondistended, normoactive bowel sounds present Back & Pelvis Lumbar spine/lower back: abnormal to inspection Pelvis: buttock abnormal (See notes from consultation) Extremity Common normals: abnormal to inspection and pedal edema General: edema Progress Note: Objective Labs Labs: Short CBC 01/28/23 Range/Units 12:30 WBC 9.4 (4.0-11.0) 10^3/uL Hgb 11.6 L (12.0-16.0) g/dL Hct 37.5 (36.0-48.0) % Plt Count 260 (150-450) 10^3/uL BMP 01/28/23 12:30 Sodium 138 Potassium 3.8 Chloride 98 Carbon Dioxide 32.7 H BUN 39.0 H Creatinine 2.35 H Glucose 126 H Calcium 9.9 Cardiac Enzymes 01/28/23 Range/Units 15:52 Total Creatine Kinase 23 L (26-192) U/L CK-MB (CK-2) 0.86 (<=3.60) ng/mL Liver Function 01/28/23 Range/Units 12:30 Total Bilirubin 1.8 H (0.2-1.0) mg/dL AST 51 H (15-37) U/L ALT 34 (14-59) U/L Alkaline Phosphatase 171 H (46-116) U/L Albumin 3.0 L (3.4-5.0) g/dL Urine 01/28/23 Range/Units 15:45 Urine Color Lt. yellow (YELLOW) Urine Clarity Clear (CLEAR) Urine pH 6.0 (5.0-9.0) Ur Specific [place] 1.015 (1.005-1.025) Urine Protein Negative (NEG/TRACE) mg/dL Urine Glucose (UA) Negative (NEGATIVE) mg/dL Progress Note: A&P Assessment and Plan (1) Congestive heart failure: (2) Atrial fibrillation: (3) Chronic kidney disease (CKD): (4) Pneumonia: (5) Sacral decubitus ulcer, stage II: (6) Anxiety: (7) Hyperthyroidism determined by thyroid function test: Plan Tachycardia with atrial fibrillation and respiratory distress secondary to bibasilar pneumonia with positive lactate. With her immune system being stres sed with long-term illness and her age she is unlikely to develop significantly elevated white blood cell count. Need to treat aggressively with IV antibiotics [facility]. Complicated by acute combined congestive heart failure-IV antibiotics. aerosols, try to obtain sputum sample. Repeat chest x-ray Acute combined congestive heart failure-check echocardiogram, check thyroid profile, monitor daily, check troponins, consult cardiology Acute hypothyroidism-discussed with granddaughter and this was to be worked up as an outpatient prior to all her chronic illness, never saw endocrinology, TSH nondetectable, T4 significantly elevated with the above symptoms with pending thyroid antibody testing we will start treatment today. Most likely Graves' disease Elevated LFTs-this is a long-term issue for her. Some point she is post to have her gallbladder removed. Ultrasound right upper quadrant shows no acute cholecystitis. Monitor daily TSH significantly low-she does not take supplemental thyroid medications according to her current list. Will check with pharmacy. T4 and T3 levels are pending Iron deficiency anemia-monitor daily Morbid obesity with moderate protein calorie malnutrition--diet management, add Ensure Acute UTI-culture pending Bilateral pleural effusion secondary to acute combined congestive heart failure- monitor pulse oximetry, consider repeat chest x-ray Hypomagnesemia-supplement With all the above issues, consult to cardiology today, echo pending, patient inpatient status. Maintain ICU secondary to hypoxia overnight, likely 3 to 4- day hospital stay
[2023-01-29 07:41] LABS: Hematocrit 33.3 % (36.0-48.0); Hemoglobin 10.5 g/dL (12.0-16.0); Immature Granulocytes Abs Auto 0.01 10^3/uL (0.00-0.03); Immature Granulocytes Pct Auto 0.3 % (0.0-0.5); Lymphocytes Absolute Auto 0.4 10^3/uL (1.2-3.8); Mean Corpuscular HGB Conc 31.5 g/dL (29.9-35.2); Mean Corpuscular Hemoglobin 29.4 pg (26.7-34.0); Mean Corpuscular Volume 93.3 fL (81.0-99.0); Mean Platelet Volume 10.3 fL (9.5-13.5); Monocytes Absolute Auto 0.3 10^3/uL (0.3-0.8); Monocytes Percent Auto 6.5 % (1.7-12.0); Neutrophils Absolute Auto 3.4 10^3/uL (1.4-6.5); Neutrophils Percent Auto 84.2 % (43.0-75.0); Platelet Count 255 10^3/uL (150-450); Red Blood Count 3.57 10^6/uL (4.20-5.40); Red Cell Distribution Width 17.9 % (11.0-15.0)
[2023-01-29 07:48] LABS: Alanine Aminotransferase 41 U/L (14-59); Albumin Globulin Ratio 0.8; Albumin Level 2.7 g/dL (3.4-5.0); Alkaline Phosphatase 156 U/L (46-116); Anion Gap 11.5; Aspartate Amino Transferase 59 U/L (15-37); BUN Creatinine Ratio 18.4; Bilirubin Total 1.5 mg/dL (0.2-1.0); Calcium 9.4 mg/dL (8.5-10.1); Carbon Dioxide 31.2 mmol/L (21.0-32.0); Chloride 99 mmol/L (98-107); Estimated GFR (African America 26 (>=60); Estimated GFR (Non-African Ame 21 (>=60); Globulin 3.4 g/dL; Glucose 169 mg/dL (74-106); Potassium 3.7 mmol/L (3.5-5.1); Sodium 138 mmol/L (136-145); Total Protein 6.1 g/dL (6.4-8.2)
[2023-01-29] MEDS: FUROSEMIDE 40 MG/4 ML VIAL IVP ×2 (08:31→19:45)
[2023-01-29] MEDS: SPIRONOLACTONE 25 MG TABLET PO (08:31)
[2023-01-29] MEDS: METOPROLOL SUCCINATE 25 MG TAB.ER.24H 50 MG PO (08:31)
[2023-01-29] MEDS: ENSURE HP 237 ML LIQUID PO (08:32)
[2023-01-29] MEDS: APIXABAN 5 MG TABLET 2.5 MG PO (08:32)
[2023-01-29] MEDS: L. ACIDOPHILUS/L.BULGARICUS 1 PACKET GRAN.PACK PO (08:32)
[2023-01-29] MEDS: PROSTAT 15 GM PROTEIN/100 CAL 30 ML LIQUID PACKET FEED TUBE (08:32)
[2023-01-29] MEDS: POTASSIUM CHLORIDE 10 MEQ ER TABLET 20 MEQ PO (08:32)
[2023-01-29] MEDS: IPRATROPIUM BROMIDE 0.5 MG/2.5 ML VIAL.NEB IH ×2 (09:24→21:06)
[2023-01-29] MEDS: LEVALBUTEROL HCL 0.63 MG/3 ML VIAL.NEB IH ×2 (09:24→21:05)
--- NOTE | 2023-01-29 09:30 | RESP.RT ---
Decreased to RA
[2023-01-29] MEDS: CLINDAMYCIN PHOSPHATE/D5W 300 MG/50 ML PIGGYBACK 50 MG IV (09:44)
--- NOTE | 2023-01-29 10:19 | PT.DAILY ---
Physical Therapy Daily Note PT Daily Note/Assess Start: 01/29/23 10:16 Freq: Status: Active Protocol: Document 01/29/23 10:16 FARRAH (Rec: 01/29/23 10:19 FARRAH [id number]) Physical Therapy Daily Note/Assessment Time In/Time Out Time In 09:50 Time Out 10:05 Pain In Pain N/A Pain Out Pain N/A Subjective Subjective Pt sitting in BS chair upon arrival. Agrees to PT. Sore buttock this morning. Therapeutic Exercise Time Therapeutic Exercise Minutes (minutes) 5 Therapeutic Exercise Units 0 Therapeutic Exercise Treatment Therapeutic Exercise Treatment Seated AP, LAQ, marches and add squeezes 10x ea to improve strength and functional mobility prior to gait. Therapeutic Activity Time Therapeutic Activity Minutes (minutes) 10 Therapeutic Activity Units 1 Therapeutic Activity Treatment Chair Transfer Ability Minimum Assist Therapeutic Activity Comments Sit>stand from BS chair with Guido. Once standing pt able to maintain balance using RW. Pt amb 1x 40' with RW, SBA. Seated rest. Then amb another 70' with RW, SBA. Pt on 2L O2 with activity - spo2 drops to 86% with activity but quickly recovers to 95% with seated rest and focusing on breathing . Returned to BS chair with call light in reach and needs met. Total Physical Therapy Time Total Therapy Minutes 15 Total Physical Therapy Units 1 Summary Daily Note Summary Improved tolerance with activity and endurance with gait.
[2023-01-29] MEDS: PIPERACILLIN SODIUM/TAZOBACTAM 3.375 GM in 0.9 % SODIUM CHLORIDE 50 ML IV (10:41)
--- NOTE | 2023-01-29 11:27 | SWNOTE1 ---
SW met with pt to discuss dc needs. Pt lives at home and she has had several family members stay with her on various days since she left [place]. Mainly it has been her daughter in law that has stayed with her. Pt uses a walker at home. Pt is current with [facility], skilled nurse and PT. SW called [facility] to verify. Pt told SW she was at [facility] for 4 weeks and then went to [place] for rehab and was there for 3 months. She voiced she just left [place] on January 19. Her plan is to return home at discharge and resume her HH. Pt is going to have family continue to stay with her for the time being. Pt is wearing oxygen in the room, and she does not have home oxygen. SW to follow as needed.
[2023-01-29] MEDS: HYOSCYAMINE SULFATE 0.125 MG TAB.SUBL SL ×2 (13:41→19:36)
[2023-01-29] MEDS: METHIMAZOLE 5 MG TABLET 10 MG PO (14:43)
[2023-01-29] MEDS: POLYETHYLENE GLYCOL 3350 17 GM POWDER PACKET PO (15:21)
[2023-01-29] MEDS: MAALOX (MAG HYDROX/ALUMINUM HYD/SIMETH) 30 ML ORAL.SUSP PO (15:28)
--- NOTE | 2023-01-29 15:43 | CM.NOTE ---
Important Message From Medicare discussed with pt, pt verbalizes understanding and signs paper. Original given to pt and copy placed on pt's chart.
[2023-01-29] MEDS: ACETAMINOPHEN 500 MG TABLET 1000 MG PO (16:05)
[2023-01-29] MEDS: PANTOPRAZOLE SODIUM 40 MG VIAL IV (16:29)
--- NOTE | 2023-01-29 19:15 | P.DS_ITS ---
DS: Providers Provider Date of admission: 01/28/23 13:44 Primary care physician: Chi Jaimes MD Consults: 01/28/23 Consult to Dietitian Routine Reason For Exam: weight loss Reason for consultation: weight loss Has provider been notified: Yes Consult to Spent Grain Dryer Routine Reason for consult:: Food/Nutrition 01/28/23 14:38 Occupational Therapy Eval and Treat Routine Reason for consultation: if neeed for rehb Has provider been notified: No Physical Therapy Eval and Treat Routine Reason for consultation: eval and treat strength Has provider been notified: No 01/28/23 14:41 Consult to Cardiology Routine Consulting Provider: Jose Gaitan Reason for consultation: chf Has provider been notified: No DS: Diagnosis Discharge Diagnosis (1) Congestive heart failure: (2) Atrial fibrillation: (3) Chronic kidney disease (CKD): (4) Pneumonia: (5) Sacral decubitus ulcer, stage II: (6) Anxiety: (7) Hyperthyroidism determined by thyroid function test: DS: Summary Hospital Course Hospital Course: Patient admitted with tachycardia with atrial fibrillation and respiratory distress secondary to bibasilar pneumonia with positive lactate. Placed on IV antibiotics, aerosol treatments, patient is slowly improving, echocardiogram came back with significantly reduced ejection fraction compared to previous. Previous was around 40 to 45%, of his echo returned as 15%. Case was discussed with cardiology and recommended transfer. Just prior to transfer patient started having increasing abdominal pain. CT scan was done emergently did not show any acute changes. Her other complicating factor is her hyperthyroidism that was discovered. She was started on medication this can be continue to follow at [facility] which is where she is being transferred to. She will follow-up with me at discharge Time Spent with Patient Time attestation: Total time spent providing and/or coordinating discharge services: Exam Narrative Exam Narrative: Thinning hair on scalp Constitutional Vital Signs, click to edit/add: Last Vital Signs Temp 97.3 F L 01/29/23 22:05 Pulse 126 H 01/29/23 22:05 Resp 24 01/29/23 22:05 BP 107/84 01/29/23 22:05 Pulse Ox 97 01/29/23 22:05 O2 Del Method Nasal Cannula 01/29/23 21:25 O2 Flow Rate 1 01/29/23 22:05 [facility] Common normals: normocephalic Chest Common normals: inspection of chest normal Respiratory Effort & inspection: able to speak in complete sentences Auscultation: rhonchi and egophony Cardio Rate: tachycardic Rhythm: abnormal rhythm GI Common normals: soft to palpation Palpation: tender Back & Pelvis Lumbar spine/lower back: abnormal to inspection Pelvis: buttock abnormal (See notes from consultation) Extremity Common normals: abnormal to inspection and pedal edema General: edema Discharge Plan Discharge Disposition: 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 Discharge Date/Time: 01/29/23 22:12 Discharge Location: [facility] Discharge location: [facility]
[2023-01-29] MEDS: HYDROXYZINE PAMOATE 25 MG CAPSULE PO (19:49)
--- NOTE | 2023-01-29 20:20 | CT_ITS ---
[address] [address] Patient Name: BEATA MAC MRN: [id number] date: 1940 Sex: F Assigned Patient Location: ICU Current Patient Location: ICU Accession/Order Number: [id number] Exam Date: 01/29/2023 20:39 Report Date: 01/29/2023 21:11 At the request of: CATHLEEN BOO Procedure: CT abdomen wo con EXAM: CT abdomen wo con REASON FOR EXAM: Female, 82 years, Increased abd pain. TECHNIQUE: Computed tomography of the abdomen and pelvis is performed in the axial projection from the lung bases to the pubic symphysis. Sagittal and coronal reconstructed images are performed. Dose reduction techniques were achieved by using automated exposure control and/or adjustment of mA and/or KVP according to patient size and/or use of iterative reconstruction technique. Study was performed without IV contrast. Study was performed without oral contrast. COMPARISON: 10/20/2022, ultrasound 01/28/2023 FINDINGS: Lung bases: There is bilateral lower lobe consolidation. Bilateral cyiww-ed-qnozxdzj pleural effusions are seen. The heart is enlarged. There has been a coronary artery bypass graft. Cardiac pacer leads are partially imaged. Evaluation of the solid abdominal organs is limited in the absence of intravenous contrast. Liver: There is a small calcification within the right lobe of the liver. Gallbladder: The gallbladder wall is thickened. High-density material within the bladder lumen is consistent with the sludge seen on yesterday's ultrasound. There is a small amount of right upper quadrant ascites. Spleen: The spleen is normal. Pancreas: There is diffuse pancreatic atrophy. Adrenal glands: There is diffuse enlargement of both adrenal glands, consistent with hyperplasia. Right kidney: The kidney is normal in size. There may be a tiny exophytic cyst at the inferior pole of the right kidney. There is no renal calculus or hydronephrosis. Left kidney: The kidney is normal in size. There is no renal calculus or hydronephrosis. Stomach: The stomach is normal. Small bowel: The small bowel is normal. Large bowel: There are colon diverticula, without surrounding inflammatory changes. Appendix: The appendix is not visualized. No right lower quadrant inflammatory changes are seen to suggest acute appendicitis. Aorta: There are diffuse atherosclerotic calcifications of the abdominal aorta. IVC: The IVC is normal. Retroperitoneum: Normal retroperitoneum. Bladder: The bladder is decompressed by a Perdomo catheter. Pelvic organs: The uterus is absent, consistent with hysterectomy. Abdominal wall: There is body wall edema. Osseous structures: Degenerative changes are seen in the visualized spine. There is mild anterolisthesis of L5 on S1 due to bilateral L5 spondylolysis. CT/CT abdomen wo con IMPRESSION: Bilateral lower lobe airspace disease which may be due to compressive atelectasis. Bilateral pleural effusions. Cardiomegaly. The gallbladder wall is thickened. There is increased density within the gallbladder lumen consistent with the sludge seen on yesterday's ultrasound. There is a small amount of right upper quadrant fluid. Diverticulosis, without acute diverticulitis. Body wall edema. No small bowel obstruction or acute renal pathology. Additional nonacute findings, as described above. Electronically authenticated by: SHANNON KUMAR Date: 01/29/2023 21:11
[2023-01-29] MEDS: HYOSCYAMINE SULFATE 0.125 MG TAB.SUBL 0.25 MG PO (20:31)
[2023-01-29 20:55] LABS: Troponin I High Sensitivity 62.7 pg/mL (4.0-51.3)
--- NOTE | 2023-01-29 21:16 | PC.NURSE ---
Patient c/o abd pain 03/02 Dr. Jaimes ordered levsin 0.125mg x2 ,given as ordered
--- NOTE | 2023-01-29 21:19 | PC.NURSE ---
Pt c/o pain 03/[address] rowland ordered levsin 0.125 mg x2 doses at 1930,given as ordered
[2023-01-29] MEDS: MORPHINE SULFATE 2 MG/ML SYRINGE IV (21:55)
--- NOTE | 2023-01-29 22:38 | PC.NURSE ---
[address] 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
--- NOTE | 2023-01-29 22:41 | PC.NURSE ---
Report called to Cony at [facility]
--- NOTE | 2023-01-29 22:54 | PC.NURSE ---
Patient appeared more jaundice and lethargic with c/o abd pain and intermittent moaning.
[2023-02-01 18:07] LABS: Thyroglobulin Antibody <1.0 IU/mL (0.0-0.9); Thyroid Peroxidase (TPO) Ab 11 IU/mL (0-34)
== END 2023-01-29 22:12 | disposition short-term general hospital (02) | DRG 193 ==
LOC: ER 13:41 → ICU 13:46
PROVIDERS: Admitting Provider Family Medicine; Emergency Provider Emergency Medicine; PCP Family Medicine; Visit Provider Internal Medicine
DX: J18.9 Pneumonia, unspecified organism (principal); I50.43 Acute on chronic combined systolic (congestive) and diastolic (congestive) heart failure; N39.0 Urinary tract infection, site not specified; E44.0 Moderate protein-calorie malnutrition; I48.91 Unspecified atrial fibrillation; R74.01 Elevation of levels of liver transaminase levels; E66.01 Morbid (severe) obesity due to excess calories; L89.152 Pressure ulcer of sacral region, stage 2; R09.02 Hypoxemia; F41.9 Anxiety disorder, unspecified; E05.90 Thyrotoxicosis, unspecified without thyrotoxic crisis or storm; E83.42 Hypomagnesemia; D50.9 Iron deficiency anemia, unspecified; Z68.32 Body mass index [BMI] 32.0-32.9, adult; Z79.01 Long term (current) use of anticoagulants; Z79.899 Other long term (current) drug therapy
CPT/HCPCS: 0202U; 36415; 51702; 71045; 71046; 74150; 76705; 80053; 81001; 82550; 82553; 83605; 83690; 83735; 83880; 84436; 84443; 84481; 84484; 85025; 87040; 87086; 87635; 87811; 93005; 93306; 94640; 94667; 94668; 94761; 96365; 96366; 96367; 96368; 96375; 96376; 97162; 97165; 97530; 99285; A6213; U0003

== ENCOUNTER 2023-02-12 10:49 | Outpatient (OUT) | payer MEDICARE, BC, SELFPAY ==
[2023-02-12 12:27] LABS: Anion Gap 10.1; BUN Creatinine Ratio 33.8; Calcium 10.6 mg/dL (8.5-10.1); Carbon Dioxide 33.4 mmol/L (21.0-32.0); Chloride 100 mmol/L (98-107); Estimated GFR (African America 29 (>=60); Estimated GFR (Non-African Ame 24 (>=60); Glucose 138 mg/dL (74-106); Potassium 3.5 mmol/L (3.5-5.1); Sodium 140 mmol/L (136-145)
== END 2023-02-12 10:50 | disposition home or self-care (01) ==
LOC: LAB 10:52
PROVIDERS: Internal Medicine Cardiovascular Disease; PCP Family Medicine
DX: I50.43 Acute on chronic combined systolic (congestive) and diastolic (congestive) heart failure (principal)
CPT/HCPCS: 36415; 80048

== ENCOUNTER 2023-02-20 13:10 | Inpatient (IN) | payer MEDICARE, BC, SELFPAY ==
[2023-02-20] VITALS (38 sets, daily range): BP systolic 105–140; BP diastolic 68–79; PULSE 73–91; RESP 15–24; TEMP 36.6–37.1; O2SAT 2–100; BMI 27.5; BMI 27.8
--- NOTE | 2023-02-20 13:23 | ECG_ITS ---
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1940 Requested By: CATHLEEN BOO Order Number: [id number] Reading MD: CATHLEEN BOO Measurements Intervals [place] Rate: 83 P: -50285 UT: -58216 QRS: 141 QRSD: 94 T: 165 QT: 380 QTc: 420 Interpretive Statements 70182 Atrial fibrillation with aberrant conduction, or ventricular premature complexes [address] depression, probably digitalis effect 7100 Abnormal right axis deviation 9150 abnormal ECG Compared to ECG 01/28/2023 11:36:08 Ventricular premature complex(es) now present Aberrant conduction of supraventricular beat(s) now present Right-axis deviation now present Myocardial infarct finding no longer present Possible ischemia no longer present ST (T wave) deviation still present Electronically Signed On 02-21-2023 7:50:46 EDT by CATHLEEN BOO
--- NOTE | 2023-02-20 13:23 | XR_ITS ---
The [address] [address] Patient Name: BEATA MAC MRN: [id number] date: 1940 Sex: F Assigned Patient Location: ER Current Patient Location: ED.MAIN Accession/Order Number: [id number] Exam Date: 02/20/2023 13:35 Report Date: 02/20/2023 14:05 At the request of: JOAQUIM PRESTON Procedure: XR chest 1V EXAM: XR chest 1V HISTORY: chest pain COMPARISON: Prior chest x-ray January 28, 2023. TECHNIQUE: Single AP view. FINDINGS: There are large bilateral pleural effusions that have not changed since the prior study 2 may be slightly worse on the left side. The dual-lead pacemaker is unchanged. The heart size is normal. Median sternotomy wires are present. XR/XR chest 1V IMPRESSION: Large bilateral pleural effusions left greater than right with probable passive or compressive atelectasis in the lung bases. Electronically authenticated by: JOHNNY VERGARA Date: 02/20/2023 14:05
--- NOTE | 2023-02-20 13:26 | ED.CHESTPAI1 ---
HPI - Chest Pain General Chief Complaint: Chest Pain Stated Complaint: CHEST PAIN Time Seen by Provider: 02/20/23 13:14 Source: patient Mode of arrival: ambulance Limitations: no limitations History of Present Illness HPI narrative: patient sent from the [facility] for evaluation after she complained of chest pain that began last night, went away and then returned this morning. No recent injury or activity to account for chest pain. No fever, chills or cough, She had some SOB. Dr Jaimes notified and asked that the patient be sent to the ED for evaluation. She recently was admitted to [facility] in early January for CHF and Afib, wa found to have elevated lactate secondary to pneumonia and when her ECHO showed EF decrease from 40% to 15% she was transferred to [facility] per cardiology recommendation. She takes Eliquis daily, has AFib, CHF and CAD Related Data Home Medications Medication Instructions Recorded Confirmed Potassium chloride 20 meq PO DAILY 12/24/22 02/20/23 apixaban 2.5 mg tablet (Eliquis) 2.5 mg PO BID 12/24/22 02/20/23 bumetanide 2 mg tablet 1 mg PO Q12H 12/24/22 02/20/23 magnesium oxide 400 mg PO BID 12/24/22 02/20/23 polyethylene glycol 3350 17 17 g PO DAILY PRN constipation 12/24/22 02/20/23 gram/dose oral powder hydroxyzine pamoate 25 mg capsule 25 mg PO Q6H PRN anxiety 01/28/23 02/20/23 midodrine 5 mg tablet 5 mg PO BID PRN SBP <100 01/28/23 02/20/23 metoprolol succinate 25 mg 50 mg PO DAILY 01/29/23 02/20/23 tablet,extended release 24 hr (Toprol XL) amoxicillin 875 mg-potassium 1 tab PO BID 02/20/23 02/20/23 clavulanate 125 mg tablet atorvastatin 80 mg tablet 80 mg PO DAILY 02/20/23 02/20/23 dapagliflozin propanediol 10 mg 10 mg PO DAILY 02/20/23 02/20/23 tablet (Farxiga) insulin aspart U-100 100 unit/mL 1 sliding scale dose subcut 02/20/23 02/20/23 (3 mL) subcutaneous pen (Novolog USEASDIRECTD FlexPen U-100 Insulin aspart) ipratropium 0.5 mg-albuterol 3 mg 3 ml inhalation BID 02/20/23 02/20/23 (2.5 mg base)/3 mL nebulization soln methimazole 10 mg tablet 10 mg PO TID 02/20/23 02/20/23 ondansetron 4 mg disintegrating 4 mg PO Q4H PRN nausea and vomiting 02/20/23 02/20/23 tablet pantoprazole 40 mg tablet,delayed 40 mg PO DAILY 02/20/23 02/20/23 release trazodone 50 mg tablet 50 mg PO DAILY 02/20/23 02/20/23 Allergies Allergy/AdvReac Type Severity Reaction Status Date / Time No Known Drug Allergies Allergy Verified 11/13/22 17:08 [facility] Medical History (Updated 02/20/23 @ 14:13 by Joaquim Preston) Anxiety ?F41.9 - Anxiety disorder, unspecified (ICD-10) Arthritis ?M19.90 - Unspecified osteoarthritis, unspecified site (ICD-10) Asthma ?J45.909 - Unspecified asthma, uncomplicated (ICD-10) Cholecystitis ?K81.9 - Cholecystitis, unspecified (ICD-10) Complication of surgery ?T81.9XXA - Unspecified complication of procedure, initial encounter (ICD-10) Diabetes ?E11.9 - Type 2 diabetes mellitus without complications (ICD-10) Diverticulosis ?K57.90 - Diverticulosis of intestine, part unspecified, without perforation or abscess without bleeding (ICD-10) High blood cholesterol ?E78.00 - Pure hypercholesterolemia, unspecified (ICD-10) History of left heart catheterization ?Z98.890 - Other specified postprocedural states (ICD-10) HTN (hypertension) ?I10 - Essential (primary) hypertension (ICD-10) Hx of essential hypertension ?Z86.79 - Personal history of other diseases of the circulatory system (ICD-10) 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 ?Y82.9 - Unspecified medical devices associated with adverse incidents (ICD-10) Myocardial infarction ?I21.9 - Acute myocardial infarction, unspecified (ICD-10) Normal colonoscopy Pacemaker ?Z95.0 - Presence of cardiac pacemaker (ICD-10) Paroxysmal atrial fibrillation ?I48.0 - Paroxysmal atrial fibrillation (ICD-10) Pneumonia ?J18.9 - Pneumonia, unspecified organism (ICD-10) Surgical History (Updated 12/24/22 @ 09:22 by Karey Turner) History of biliary T-tube placement ?Z98.890 - Other specified postprocedural states (ICD-10) History of bladder surgery ?Z98.890 - Other specified postprocedural states (ICD-10) History of cardiac radiofrequency ablation ?Z98.890 - Other specified postprocedural states (ICD-10) History of hysterectomy ?Z90.710 - Acquired absence of both cervix and uterus (ICD-10) History of radiofrequency ablation procedure for cardiac arrhythmia ?Z98.890 - Other specified postprocedural states (ICD-10) History of revision of total knee arthroplasty ?Z96.659 - Presence of unspecified artificial knee joint (ICD-10) History of thoracentesis ?Z98.890 - Other specified postprocedural states (ICD-10) History of total knee arthroplasty ?Z96.659 - Presence of unspecified artificial knee joint (ICD-10) Hx of hernia repair ?Z98.890 - Other specified postprocedural states (ICD-10) ?Z87.19 - Personal history of other diseases of the digestive system (ICD-10) S/P appy ?Z90.49 - Acquired absence of other specified parts of digestive tract (ICD-10) Status post pericardiocentesis ?Z98.890 - Other specified postprocedural states (ICD-10) Social History Smoking status: Never smoker Exam Narrative Exam Narrative: Nurses notes and vital signs reviewed and patient is not hypoxic. afebrile General: Well-appearing and in no apparent distress. Skin: Warm, dry, no pallor noted. Head: Normocephalic, atraumatic. Eye: Pupils are equal, round and EOMI. No scleral icterus. Cardiovascular: Regular Rate and Rhythm without murmur, gallop or rub. Respiratory: No accessory muscle use or respiratory distress. Lungs are clear to auscultation, no wheezing, rales or rhonchi Chest Wall: no tenderness Musculoskeletal: normal ROM, no calf or popliteal tenderness. 2+ pitting bilateral lower extremity edema/swelling GI: Abdomen is soft, non-distended. Normal bowel sounds. No tenderness to palpation. No rebound, guarding, or rigidity noted. Neurological: A&O x4. No cranial nerve dysfunction observed. No truncal ataxia. Moves all extremities. Sensation intact. Psychiatric: Cooperative and interactive. Normal mood and affect. Constitutional Vital Signs, click to edit/add: Last Vital Signs Pulse 75 02/20/23 13:16 Resp 16 02/20/23 13:16 BP 140/76 02/20/23 13:16 Pulse Ox 100 02/20/23 13:29 O2 Del Method Nasal Cannula 02/20/23 13:29 O2 Flow Rate 3 02/20/23 13:29 Course Vital Signs Vital signs: Vital Signs Pulse Rate 75 02/20/23 13:16 Respiratory Rate 16 02/20/23 13:16 Blood Pressure 140/76 02/20/23 13:16 Pulse Oximetry 100 02/20/23 13:16 Oxygen Delivery Method Nasal Cannula 02/20/23 13:16 Oxygen Delivery Flow Rate 3 02/20/23 13:16 Pulse Rate 75 02/20/23 13:16 Respiratory Rate 16 02/20/23 13:16 Blood Pressure 140/76 02/20/23 13:16 Pulse Oximetry 100 02/20/23 13:29 Oxygen Delivery Method Nasal Cannula 02/20/23 13:29 Oxygen Delivery Flow Rate 3 02/20/23 13:29 MDM - Chest Pain MDM Narrative Medical decision making narrative: Patient was placed on outside sales executive and EKG obtained - rate controlled afib. Blood drawn and sent for evaluation. CXR reveals cephalization and BNP elevated, consistent with CHF flare. Troponin negative and patient without chest pain after EMS gave aspirin. Patient's kidney function is worsening when compared with previous values - may need combination of gentle fluid administration with gentle diuresis. Normal WBC so dont suspect infection/pneumonia. Ordered to receive IV Lasix. Case discussed with Dr Prieto who will admit on behalf of Dr Jaimes - HUSAM, inpatient w telemetry monitoring Medical Records Data Attestation: I reviewed the patient's medical records. Medical records narrative: I reviewed the patient's chart from her Emergency Department visit and admission in early January but subsequent transfer to [facility]. Please see my notations in the HPI section. Lab Data Attestation: I reviewed the patient's lab results. Labs: Lab Results 02/20/23 Range/Units 13:20 WBC 10.3 (4.0-11.0) 10^3/uL RBC 3.87 L (4.20-5.40) 10^6/uL Hgb 11.3 L (12.0-16.0) g/dL Hct 36.0 (36.0-48.0) % MCV 93.0 (81.0-99.0) fL MCH 29.2 (26.7-34.0) pg MCHC 31.4 (29.9-35.2) g/dL RDW 17.7 H (11.0-15.0) % Plt Count 238 (150-450) 10^3/uL MPV 11.7 (9.5-13.5) fL Neut % (Auto) 77.9 H (43.0-75.0) % Lymph % (Auto) 8.8 L (20.5-60.0) % Sumner % (Auto) 11.1 (1.7-12.0) % Eos % (Auto) 1.5 (0.9-7.0) % Baso % (Auto) 0.2 (0.2-2.0) % Neut # (Auto) 8.0 H (1.4-6.5) 10^3/uL Lymph # (Auto) 0.9 L (1.2-3.8) 10^3/uL Sumner # (Auto) 1.2 H (0.3-0.8) 10^3/uL Eos # (Auto) 0.2 (0.0-0.7) 10^3/uL Baso # (Auto) 0.0 (0.0-0.1) 10^3/uL Abs Immat Gran (auto) 0.05 H (0.00-0.03) 10^3/uL Imm/Tot Granulo (auto) 0.5 (0.0-0.5) % Sodium 137 (136-145) mmol/L Potassium 4.5 (3.5-5.1) mmol/L Chloride 97 L (98-107) mmol/L Carbon Dioxide 34.9 H (21.0-32.0) mmol/L Anion Gap 9.6 BUN 54.0 H (7.0-18.0) mg/dL Creatinine 2.30 H (0.55-1.02) mg/dL Est GFR ( Amer) 25 L (>=60) Est GFR (Non-Af Amer) 20 L (>=60) BUN/Creatinine Ratio 23.5 Glucose 160 H (74-106) mg/dL Calcium 9.5 (8.5-10.1) mg/dL Troponin I High Sens 42.6 (4.0-51.3) pg/mL NT-Pro-B Natriuret Pep 01591.0 H* (<=1800.0) pg/mL Imaging Data Chest x-ray: Radiologist's impression: Patient Name: BEATA MAC MRN: [facility]:[id number] date: 1940 Sex: F Assigned Patient Location: ER Current Patient Location: ED.MAIN Accession/Order Number: [id number] Exam Date: 02/20/2023 13:35 Report Date: 02/20/2023 14:05 At the request of: JOAQUIM PRESTON Procedure: XR chest 1V EXAM: XR chest 1V HISTORY: chest pain COMPARISON: Prior chest x-ray January 28, 2023. TECHNIQUE: Single AP view. FINDINGS: There are large bilateral pleural effusions that have not changed since the prior study 2 may be slightly worse on the left side. The dual-lead pacemaker is unchanged. The heart size is normal. Median sternotomy wires are present. IMPRESSION: Large bilateral pleural effusions left greater than right with probable passive or compressive atelectasis in the lung bases. Electronically authenticated by: JOHNNY VERGARA Date: 02/20/2023 14:05 ECG Data Interpretation: EKG interpretation: Emergency Department physician interpretation. rate controlled atrial fibrillation at 83bpm. rightward axis, nonspecific ST changes with no ST segment elevation or depression. Discharge Plan Discharge Chief Complaint: Chest Pain Clinical Impression: Congestive heart failure, Atrial fibrillation, Chest pain Patient Disposition: Admitted As Inpatient Time of Disposition Decision: 14:12 Additional Instructions: Dr Prieto's service, inpatient, [facility] w tele
[2023-02-20 13:31] LABS: Basophils Percent Auto 0.2 % (0.2-2.0); Eosinophils Absolute Auto 0.2 10^3/uL (0.0-0.7); Eosinophils Percent Auto 1.5 % (0.9-7.0); Hemoglobin 11.3 g/dL (12.0-16.0); Immature Granulocytes Abs Auto 0.05 10^3/uL (0.00-0.03); Immature Granulocytes Pct Auto 0.5 % (0.0-0.5); Lymphocytes Absolute Auto 0.9 10^3/uL (1.2-3.8); Lymphocytes Percent Auto 8.8 % (20.5-60.0); Mean Corpuscular HGB Conc 31.4 g/dL (29.9-35.2); Mean Corpuscular Hemoglobin 29.2 pg (26.7-34.0); Mean Platelet Volume 11.7 fL (9.5-13.5); Monocytes Absolute Auto 1.2 10^3/uL (0.3-0.8); Monocytes Percent Auto 11.1 % (1.7-12.0); Neutrophils Percent Auto 77.9 % (43.0-75.0); Platelet Count 238 10^3/uL (150-450); Red Blood Count 3.87 10^6/uL (4.20-5.40); Red Cell Distribution Width 17.7 % (11.0-15.0); White Blood Count 10.3 10^3/uL (4.0-11.0)
[2023-02-20 13:52] LABS: Anion Gap 9.6; BUN Creatinine Ratio 23.5; Calcium 9.5 mg/dL (8.5-10.1); Carbon Dioxide 34.9 mmol/L (21.0-32.0); Chloride 97 mmol/L (98-107); Estimated GFR (African America 25 (>=60); Estimated GFR (Non-African Ame 20 (>=60); Glucose 160 mg/dL (74-106); Potassium 4.5 mmol/L (3.5-5.1); Sodium 137 mmol/L (136-145); Troponin I High Sensitivity 42.6 pg/mL (4.0-51.3)
[2023-02-20] MEDS: FUROSEMIDE 40 MG/4 ML VIAL IVP ×2 (14:33→21:41)
[2023-02-20 18:27] LABS: Troponin I High Sensitivity 41.4 pg/mL (4.0-51.3)
[2023-02-20] MEDS: HYDROXYZINE PAMOATE 25 MG CAPSULE PO (19:49)
--- NOTE | 2023-02-20 19:58 | RESP.RT ---
patient placed on room air
[2023-02-20] MEDS: APIXABAN 5 MG TABLET 2.5 MG PO (20:06)
[2023-02-20] MEDS: TRAZODONE HCL 50 MG TABLET PO (21:33)
[2023-02-20 21:34] LABS: Glucometer 150 mg/dL (74-106)
[2023-02-20 22:41] LABS: Troponin I High Sensitivity 41.2 pg/mL (4.0-51.3)
[2023-02-21] VITALS (69 sets, daily range): BP systolic 109–144; BP diastolic 58–87; PULSE 71–106; RESP 15–25; TEMP 36.6–37.1; O2SAT 83–100
[2023-02-21] MEDS: IPRATROPIUM/ALBUTEROL SULFATE 3 ML AMPUL.NEB IH ×2 (02:28→23:49)
[2023-02-21 04:38] LABS: Basophils Percent Auto 0.2 % (0.2-2.0); Eosinophils Absolute Auto 0.1 10^3/uL (0.0-0.7); Eosinophils Percent Auto 1.3 % (0.9-7.0); Hematocrit 32.7 % (36.0-48.0); Hemoglobin 9.9 g/dL (12.0-16.0); Immature Granulocytes Abs Auto 0.03 10^3/uL (0.00-0.03); Immature Granulocytes Pct Auto 0.3 % (0.0-0.5); Lymphocytes Absolute Auto 1.1 10^3/uL (1.2-3.8); Lymphocytes Percent Auto 10.6 % (20.5-60.0); Mean Corpuscular HGB Conc 30.3 g/dL (29.9-35.2); Mean Corpuscular Hemoglobin 28.3 pg (26.7-34.0); Mean Corpuscular Volume 93.4 fL (81.0-99.0); Mean Platelet Volume 11.3 fL (9.5-13.5); Monocytes Absolute Auto 1.2 10^3/uL (0.3-0.8); Monocytes Percent Auto 11.7 % (1.7-12.0); Neutrophils Absolute Auto 7.5 10^3/uL (1.4-6.5); Neutrophils Percent Auto 75.9 % (43.0-75.0); Platelet Count 231 10^3/uL (150-450); Red Cell Distribution Width 17.6 % (11.0-15.0); White Blood Count 9.9 10^3/uL (4.0-11.0)
[2023-02-21 05:00] LABS: Magnesium 2.1 mg/dL (1.8-2.4)
[2023-02-21 05:04] LABS: Alanine Aminotransferase 64 U/L (14-59); Albumin Globulin Ratio 0.7; Albumin Level 2.7 g/dL (3.4-5.0); Alkaline Phosphatase 267 U/L (46-116); Anion Gap 8.3; Aspartate Amino Transferase 62 U/L (15-37); BUN Creatinine Ratio 24.9; Bilirubin Total 1.7 mg/dL (0.2-1.0); Calcium 9.9 mg/dL (8.5-10.1); Carbon Dioxide 34.7 mmol/L (21.0-32.0); Chloride 100 mmol/L (98-107); Estimated GFR (African America 25 (>=60); Estimated GFR (Non-African Ame 21 (>=60); Globulin 3.7 g/dL; Glucose 132 mg/dL (74-106); Sodium 139 mmol/L (136-145); Total Protein 6.4 g/dL (6.4-8.2)
[2023-02-21 07:44] LABS: Glucometer 155 mg/dL (74-106)
[2023-02-21] MEDS: MAGNESIUM OXIDE 400 MG TABLET PO (08:19)
[2023-02-21] MEDS: OMEPRAZOLE 40 MG CAPSULE.DR PO (08:19)
[2023-02-21] MEDS: METOPROLOL SUCCINATE 25 MG TAB.ER.24H 50 MG PO (08:20)
[2023-02-21] MEDS: METHIMAZOLE 5 MG TABLET 10 MG PO ×3 (08:20→21:32)
[2023-02-21] MEDS: APIXABAN 5 MG TABLET 2.5 MG PO ×2 (08:20→21:33)
--- NOTE | 2023-02-21 08:20 | CA_ITS ---
Patient: BEATA MCA Exam Date: 02/22/2023 : 1940 Gender:F Ordering : DR Chi Jaimes . Admission #: [id number] Family : DR Jose Gaitan M.D. Order #: [id number] CLICK HERE TO VIEW EXAM ECHOCARDIOGRAM REPORT PROCEDURE: CA ECHO LIMITED INDICATIONS: Congestive heart failure, pacemaker, h/o PA, hypertension COMPARISON: None. DESCRIPTION: Limited ECHOCARDIOGRAM Real-time transthoracic echocardiography with 2D and M-mode performed. QUALITY: Limited echocardiogram per physician order. LEFT VENTRICLE: Normal chamber size. Thickened septal wall. Visual estimation of left ventricular ejection fraction is 10-15%. LV EF: Severely reduced left ventricular ejection fraction, (<25%). LEFT ATRIUM: Moderate dilatation. RIGHT ATRIUM: Moderate dilatation. RIGHT VENTRICLE: Normal chamber size. Pacer wire present. TRICUSPID VALVE: Normal mobility and thickness. MITRAL VALVE: Moderately thickened with decreased mobility. Moderate mitral annular calcification. AORTIC VALVE: Normal trileaflet appearance. Thickened aortic valve. Normal leaflet mobility. AORTIC ROOT: Normal diameter and appearance. PULMONIC VALVE: Normal thickness and mobility. PERICARDIUM: There is a small posterior pericardial effusion. IVC: IVC is dilated with no collapse. PLEURA: Large, left, pleural effusion. CONCLUSION: 1. Global left ventricular systolic function is severely reduced; visually estimated ejection fraction is 10 to 15% 2. Biatrial enlargement 3. Small posterior pericardial effusion 4. Large left pleural effusion 5. A Limited echocardiogram was performed Adult Echocardiography Procedure Report Left Ventricle LVEDD (3.7 - 5.6 cm): 4.42 cm LVESD (2.2 - 4.0 cm): 4.09 cm LVIVS thickness (0.6 - 1.2 cm): 0.96 cm LVPW thickness (0.5 - 1.0 cm): 0.93 cm LVOT Diameter 1.50 cm Left Atrium LA Volume Index (2D A2C): 47.77 ml/m2 Left Atrium Systolic Dimension: 4.56 cm Mitral Valve Right Ventricle Aorta AO Root Diam: 3.19 cm Aortic Valve Tricuspid Valve Pulmonic Valve Right Atrium Right Atrium Systolic Pressure: 57.25 ml, 57.25 ml Dictated by: Jose Gaitan M.D. on 02/23/2023 at 12:40 Approved by: Jose Gaitan M.D. on 02/23/2023 at 12:43
--- NOTE | 2023-02-21 08:38 | P.HP_ITS ---
H&P: HPI History of Present Illness Chief complaint: CHEST PAIN Narrative: Patient has had extensive heart history presented to the emergency room with increasing chest pain. She had chest pain the previous day she also had back pain with associated shortness of breath the day before and on the day of admission. In ER found to have acute combined congestive heart failure with significant pleural effusions and acute hypoxia with saturations of 83% on room air. Patient admitted to ICU Review of Systems ROS Constitutional Denies: fever or chills Eyes Denies: change in vision Ears, nose, mouth, and throat Denies: throat pain Cardiovascular Reports: chest pain, palpitations, edema, swelling of feet/ankles, shortness of breath with exertion and shortness of breath when lying down Respiratory Reports: shortness of breath Gastrointestinal Denies: abdominal pain Genitourinary Denies: painful urination Musculoskeletal Reports: back pain Neurological Denies: headache or numbness in extremities Psychiatric Denies: anxiety Endocrine Denies: excessive urination [facility] Medical History (Updated 02/20/23 @ 14:13 by Santiago Ruvalcaba) Anxiety ?F41.9 - Anxiety disorder, unspecified (ICD-10) Arthritis ?M19.90 - Unspecified osteoarthritis, unspecified site (ICD-10) Asthma ?J45.909 - Unspecified asthma, uncomplicated (ICD-10) Cholecystitis ?K81.9 - Cholecystitis, unspecified (ICD-10) Complication of surgery ?T81.9XXA - Unspecified complication of procedure, initial encounter (ICD-10) Diabetes ?E11.9 - Type 2 diabetes mellitus without complications (ICD-10) Diverticulosis ?K57.90 - Diverticulosis of intestine, part unspecified, without perforation or abscess without bleeding (ICD-10) High blood cholesterol ?E78.00 - Pure hypercholesterolemia, unspecified (ICD-10) History of left heart catheterization ?Z98.890 - Other specified postprocedural states (ICD-10) HTN (hypertension) ?I10 - Essential (primary) hypertension (ICD-10) Hx of essential hypertension ?Z86.79 - Personal history of other diseases of the circulatory system (ICD- 10) forepart reducer associated with adverse incidents ?Y82.9 - Unspecified medical devices associated with adverse incidents (ICD- 10) Myocardial infarction ?I21.9 - Acute myocardial infarction, unspecified (ICD-10) Normal colonoscopy Pacemaker ?Z95.0 - Presence of cardiac pacemaker (ICD-10) Paroxysmal atrial fibrillation ?I48.0 - Paroxysmal atrial fibrillation (ICD-10) Pneumonia ?J18.9 - Pneumonia, unspecified organism (ICD-10) Surgical History (Updated 02/20/23 @ 15:42 by Lanette Corrigan) History of biliary T-tube placement ?Z98.890 - Other specified postprocedural states (ICD-10) History of bladder surgery ?Z98.890 - Other specified postprocedural states (ICD-10) History of cardiac radiofrequency ablation ?Z98.890 - Other specified postprocedural states (ICD-10) History of hysterectomy ?Z90.710 - Acquired absence of both cervix and uterus (ICD-10) History of open heart surgery ?Z98.890 - Other specified postprocedural states (ICD-10) History of radiofrequency ablation procedure for cardiac arrhythmia ?Z98.890 - Other specified postprocedural states (ICD-10) History of revision of total knee arthroplasty ?Z96.659 - Presence of unspecified artificial knee joint (ICD-10) History of thoracentesis ?Z98.890 - Other specified postprocedural states (ICD-10) History of total knee arthroplasty ?Z96.659 - Presence of unspecified artificial knee joint (ICD-10) Hx of hernia repair ?Z98.890 - Other specified postprocedural states (ICD-10) ?Z87.19 - Personal history of other diseases of the digestive system (ICD-10) S/P appy ?Z90.49 - Acquired absence of other specified parts of digestive tract (ICD- 10) Status post pericardiocentesis ?Z98.890 - Other specified postprocedural states (ICD-10) Social History Smoking status: Never smoker Meds Home Medications and Allergies Home Medications Medication Instructions Recorded Confirmed Type apixaban 2.5 mg tablet (Eliquis) 2.5 mg PO BID 12/24/22 02/20/23 History bumetanide 2 mg tablet 2 mg PO Q12H 12/24/22 02/21/23 History magnesium oxide 400 mg PO DAILY 12/24/22 02/20/23 History polyethylene glycol 3350 17 17 g PO DAILY constipation 12/24/22 02/20/23 History gram/dose oral powder hydroxyzine pamoate 25 mg capsule 25 mg PO Q6H PRN anxiety 01/28/23 02/20/23 History midodrine 5 mg tablet 5 mg PO BID PRN SBP <100 01/28/23 02/20/23 History metoprolol succinate 25 mg 50 mg PO DAILY 01/29/23 02/20/23 History tablet,extended release 24 hr (Toprol XL) atorvastatin 80 mg tablet 80 mg PO .HS 02/20/23 02/21/23 History dapagliflozin propanediol 10 mg 10 mg PO DAILY 02/20/23 02/20/23 History tablet (Farxiga) guaifenesin 1,200 mg tablet, 1,200 mg PO BID 02/20/23 02/20/23 History extended release 12 hr (Mucinex) insulin aspart U-100 100 unit/mL 1 sliding scale dose subcut 02/20/23 02/20/23 History (3 mL) subcutaneous pen (Novolog USEASDIRECTD FlexPen U-100 Insulin aspart) ipratropium 0.5 mg-albuterol 3 mg 3 ml inhalation BID 02/20/23 02/21/23 History (2.5 mg base)/3 mL nebulization soln methimazole 10 mg tablet 10 mg PO TID 02/20/23 02/20/23 History ondansetron 4 mg disintegrating 4 mg PO Q4H PRN nausea and vomiting 02/20/23 02/20/23 History tablet pantoprazole 40 mg tablet,delayed 40 mg PO DAILY 02/20/23 02/20/23 History release potassium chloride 20 mEq 40 meq PO DAILY 02/20/23 02/20/23 History tablet,extended release(part/cryst) (Klor-Con M) propylene glycol 1 %-glycerin 0.3 1 drp ophthalmic (eye) BID PRN dry 02/20/23 02/20/23 History % eye drops (Artificial Tears eye(s) (glycerin-peg)) trazodone 50 mg tablet 50 mg PO .QHS 02/20/23 02/21/23 History Allergies Allergy/AdvReac Type Severity Reaction Status Date / Time No Known Drug Allergies Allergy Verified 11/13/22 17:08 Exam Constitutional Vital Signs, click to edit/add: Last Vital Signs Temp 97.8 F 02/21/23 07:58 Pulse 80 02/21/23 07:53 Resp 20 02/21/23 07:45 BP 117/68 02/21/23 07:40 Pulse Ox 100 02/21/23 07:45 O2 Del Method Room Air 02/21/23 08:31 O2 Flow Rate 2 02/21/23 04:25 Documenting provider has reviewed patient's vital signs: yes Common normals: no apparent distress HENMT Common normals: normocephalic and head/scalp atraumatic Chest Common normals: inspection of chest normal Respiratory Common normals: normal respiratory effort Effort & inspection: able to speak in complete sentences Auscultation: rales and breath sounds absent Cardio Common normals: regular rate; irregular rhythm Rhythm: abnormal rhythm Extremity Common normals: abnormal to inspection General: edema (2-3 + edema) Results Labs Labs: Short CBC 02/20/23 02/21/23 Range/Units 13:20 03:52 WBC 10.3 9.9 (4.0-11.0) 10^3/uL Hgb 11.3 L 9.9 L (12.0-16.0) g/dL Hct 36.0 32.7 L (36.0-48.0) % Plt Count 238 231 (150-450) 10^3/uL BMP 02/20/23 02/21/23 13:20 03:52 Sodium 137 139 Potassium 4.5 4.0 Chloride 97 L 100 Carbon Dioxide 34.9 H 34.7 H BUN 54.0 H 56.0 H Creatinine 2.30 H 2.25 H Glucose 160 H 132 H Calcium 9.5 9.9 Liver Function 02/21/23 Range/Units 03:52 Total Bilirubin 1.7 H (0.2-1.0) mg/dL AST 62 H (15-37) U/L ALT 64 H (14-59) U/L Alkaline Phosphatase 267 H (46-116) U/L Albumin 2.7 L (3.4-5.0) g/dL Assessment and Plan Assessment and Plan (1) Congestive heart failure: (2) Atrial fibrillation: (3) Chronic kidney disease (CKD): (4) Sacral decubitus ulcer, stage II: (5) Hyperthyroidism determined by thyroid function test: (6) Chest pain: Plan Acute hypoxic respiratory failure with O2 saturations of 83% on room air secondary to bilateral pleural effusions, elevated LFTs secondary to passive congestion resulting from acute combined congestive heart failure-troponins were negative, echo pending, no significant output with 2 doses of IV Lasix. We will change patient to the Bumex drip. Just need to watch blood pressure closely Elevated LFTs-known history of cholecystitis, will check ultrasound of abdomen tomorrow Hyperthyroidism-was evaluated at [facility]. We will try to review records for diagnosis. On medication. Check levels. Iron deficiency anemia-supplement, down somewhat today which will be expected to go up with the diuresis. Check occult blood Bilateral pleural effusions-secondary to above we will hold off on any procedure. See if diuresis improves History of UTI-we will check UA Moderate protein calorie malnutrition-diet supplement with Degree of hypoxia and the severity of her pleural effusion, will maintain treatment as an inpatient status.
[2023-02-21] MEDS: BUMETANIDE 10 MG in 0.9 % SODIUM CHLORIDE 160 ML 20 MG IV (08:49)
[2023-02-21] MEDS: ENSURE HP 237 ML LIQUID PO ×2 (09:01→21:33)
[2023-02-21] MEDS: FERROUS SULFATE 325 MG TABLET PO ×2 (09:01→21:33)
[2023-02-21 11:18] LABS: Glucometer 225 mg/dL (74-106)
--- NOTE | 2023-02-21 12:57 | PC.NURSE ---
pt was admitted with [facility] the [facility]. noted urine output low, leaking noted around insertion site, pt c/o lower abd pain. ruiz catheter dc'd, placed new catheter with immediate return of 50 cc dark yellow cloudy urine.
[2023-02-21] MEDS: BUMETANIDE 1 MG/4 ML VIAL 2 MG IVP (13:21)
[2023-02-21] MEDS: SIMETHICONE 80 MG TAB.CHEW PO (16:28)
[2023-02-21] MEDS: ACETAMINOPHEN 325 MG TABLET 650 MG PO (16:37)
[2023-02-21] MEDS: POLYETHYLENE GLYCOL 3350 17 GM POWDER PACKET PO (16:38)
[2023-02-21 16:50] LABS: Glucometer 188 mg/dL (74-106)
[2023-02-21] MEDS: INSULIN ASPART 300 UNIT/3 ML PEN SUBQ (16:53)
[2023-02-21 20:44] LABS: Glucometer 133 mg/dL (74-106)
[2023-02-21] MEDS: ATORVASTATIN CALCIUM 40 MG TABLET 80 MG PO (21:32)
[2023-02-21] MEDS: DOCUSATE SODIUM 100 MG CAPSULE PO (21:32)
[2023-02-21] MEDS: MAALOX (MAG HYDROX/ALUMINUM HYD/SIMETH) 30 ML ORAL.SUSP PO (21:32)
[2023-02-21] MEDS: TRAZODONE HCL 50 MG TABLET PO (21:33)
[2023-02-21] MEDS: ONDANSETRON PF 4 MG/2 ML VIAL IV (21:47)
[2023-02-22] VITALS (19 sets, daily range): BP systolic 102–126; BP diastolic 69–82; PULSE 83–110; RESP 18; TEMP 36.3–36.7; O2SAT 76–99; BMI 29.5
[2023-02-22] MEDS: METHIMAZOLE 5 MG TABLET 10 MG PO (05:38)
[2023-02-22 06:05] LABS: Basophils Percent Auto 0.1 % (0.2-2.0); Eosinophils Percent Auto 0.4 % (0.9-7.0); Hematocrit 34.1 % (36.0-48.0); Hemoglobin 10.4 g/dL (12.0-16.0); Immature Granulocytes Abs Auto 0.03 10^3/uL (0.00-0.03); Immature Granulocytes Pct Auto 0.3 % (0.0-0.5); Lymphocytes Absolute Auto 1.1 10^3/uL (1.2-3.8); Lymphocytes Percent Auto 10.8 % (20.5-60.0); Mean Corpuscular HGB Conc 30.5 g/dL (29.9-35.2); Mean Platelet Volume 11.8 fL (9.5-13.5); Monocytes Absolute Auto 1.2 10^3/uL (0.3-0.8); Monocytes Percent Auto 11.7 % (1.7-12.0); Neutrophils Absolute Auto 7.8 10^3/uL (1.4-6.5); Neutrophils Percent Auto 76.7 % (43.0-75.0); Platelet Count 215 10^3/uL (150-450); Red Blood Count 3.59 10^6/uL (4.20-5.40); Red Cell Distribution Width 17.7 % (11.0-15.0); White Blood Count 10.2 10^3/uL (4.0-11.0)
[2023-02-22 06:31] LABS: Magnesium 2.1 mg/dL (1.8-2.4)
[2023-02-22 06:38] LABS: Alanine Aminotransferase 63 U/L (14-59); Albumin Globulin Ratio 0.7; Albumin Level 2.7 g/dL (3.4-5.0); Alkaline Phosphatase 273 U/L (46-116); Anion Gap 10.7; Aspartate Amino Transferase 61 U/L (15-37); BUN Creatinine Ratio 25.8; Bilirubin Total 1.9 mg/dL (0.2-1.0); Calcium 10.3 mg/dL (8.5-10.1); Carbon Dioxide 31.6 mmol/L (21.0-32.0); Chloride 99 mmol/L (98-107); Estimated GFR (African America 23 (>=60); Estimated GFR (Non-African Ame 19 (>=60); Globulin 3.8 g/dL; Glucose 120 mg/dL (74-106); Potassium 4.3 mmol/L (3.5-5.1); Sodium 137 mmol/L (136-145); Total Protein 6.5 g/dL (6.4-8.2)
[2023-02-22 06:44] LABS: Thyroid Stimulating Hormone <0.007 uIU/mL (0.358-3.740)
[2023-02-22 07:24] LABS: NT Pro B Type Natriuretic Pept >35000.0 pg/mL (<=1800.0)
--- NOTE | 2023-02-22 07:56 | US_ITS ---
The [address] [address] Patient Name: BETAA MAC MRN: [id number] date: 1940 Sex: F Assigned Patient Location: [place] Current Patient Location: [place] Accession/Order Number: [id number] Exam Date: 02/22/2023 07:30 Report Date: 02/22/2023 08:51 At the request of: CATHLEEN BOO Procedure: US venous doppler LE BI BILATERAL LOWER EXTREMITY VENOUS ULTRASOUND: 02/22/2023 7:30 AM EDT Clinical Data: edema, pain in calves Comparison: No previous Grayscale and Doppler evaluation. On the right there is no evidence of DVT. On the left mid to distal SFV is not compressible. It is not echogenic. There is flow in the popliteal vein. US/US venous doppler LE BI IMPRESSION: 1. The mid to distal left SFV is not compressible consistent with DVT. Electronically authenticated by: RU BORJA Date: 02/22/2023 08:51
--- NOTE | 2023-02-22 07:59 | P.PN_ITS ---
Progress Note: Subjective Subjective Interval history: Morbid generalized weakness today. Exam Constitutional Vital Signs, click to edit/add: Last Vital Signs Temp 98.1 F 02/22/23 05:02 Pulse 87 02/22/23 06:00 Resp 18 02/22/23 05:02 BP 102/69 02/22/23 05:02 Pulse Ox 93 L 02/22/23 05:02 O2 Del Method Room Air 02/22/23 05:02 O2 Flow Rate 0.5 02/21/23 23:49 Documenting provider has reviewed patient's vital signs: yes Common normals: no apparent distress [facility] Common normals: normocephalic and head/scalp atraumatic Chest Common normals: inspection of chest normal Respiratory Common normals: normal respiratory effort Effort & inspection: able to speak in complete sentences Auscultation: rales and breath sounds absent Cardio Common normals: regular rate; irregular rhythm Rhythm: abnormal rhythm Extremity Common normals: abnormal to inspection General: edema (2-3 + edema) Progress Note: Objective Labs Labs: Short CBC 02/22/23 Range/Units 05:31 WBC 10.2 (4.0-11.0) 10^3/uL Hgb 10.4 L (12.0-16.0) g/dL Hct 34.1 L (36.0-48.0) % Plt Count 215 (150-450) 10^3/uL BMP 02/22/23 05:31 Sodium 137 Potassium 4.3 Chloride 99 Carbon Dioxide 31.6 BUN 62.0 H Creatinine 2.40 H Glucose 120 H Calcium 10.3 H Liver Function 02/22/23 Range/Units 05:31 Total Bilirubin 1.9 H (0.2-1.0) mg/dL AST 61 H (15-37) U/L ALT 63 H (14-59) U/L Alkaline Phosphatase 273 H (46-116) U/L Albumin 2.7 L (3.4-5.0) g/dL Progress Note: A&P Assessment and Plan (1) Congestive heart failure: (2) Atrial fibrillation: (3) Chronic kidney disease (CKD): (4) Sacral decubitus ulcer, stage II: (5) Hyperthyroidism determined by thyroid function test: (6) Chest pain: Plan Acute hypoxic respiratory failure with O2 saturations of 83% on room air secondary to bilateral pleural effusions, elevated LFTs secondary to passive congestion resulting from acute combined congestive heart failure-minimal urinary output despite IV Lasix and IV Bumex drip. Check on echocardiogram today. Elevated LFTs-known history of cholecystitis, will check ultrasound of abdomen today. LFTs are slightly elevated Hyperthyroidism-was evaluated at [facility]. T4 still significantly elevated, will adjust medications Iron deficiency anemia-supplement, down somewhat today which will be expected to go up with the diuresis. Check occult blood Bilateral pleural effusions-secondary to above we will hold off on any procedure. See if diuresis improves History of UTI-we will check UA Moderate protein calorie malnutrition-diet supplement with Degree of hypoxia and the severity of her pleural effusion, will maintain treatment as an inpatient status. ?
--- NOTE | 2023-02-22 08:00 | US_ITS ---
The [address] [address] Patient Name: BEATA MAC MRN: [id number] date: 1940 Sex: F Assigned Patient Location: MS Current Patient Location: MS Accession/Order Number: [id number] Exam Date: 02/22/2023 07:30 Report Date: 02/22/2023 08:56 At the request of: CATHLEEN BOO Procedure: US right upper quadrant EXAM: US right upper quadrant HISTORY: Elevated LFT, known hx gallstones COMPARISON: None. TECHNIQUE: Grayscale, color and Doppler FINDINGS: The liver appears mildly nodular contour. No focal mass. Hepatopedal flow in the main portal vein with a velocity of 20 cm/s Small right pleural effusion The gallbladder wall is thickened measuring 6.2 mm. Echogenic filling of the gallbladder lumen, cholelithiasis and/or gallbladder sludge. No pericholecystic fluid. The common bile duct measures 3.4 mm, normal. Negative sonographic Fofana sign. The visualized pancreatic body is normal The right kidney measures 9.6 x 4.5 x 4.6 cm. Area of anechoic echogenicity the cortex measuring 5 mm, simple cyst favored. No hydronephrosis US/US right upper quadrant IMPRESSION: Mildly nodular liver contour with normal echotexture, nonspecific Marked gallbladder wall thickening suggesting cholecystitis with underlying cholelithiasis and gallbladder sludge Electronically authenticated by: EMILE MOROCHO Date: 02/22/2023 08:56
--- NOTE | 2023-02-22 08:40 | XR_ITS ---
[address] [address] Patient Name: BEATA MAC MRN: [id number] date: 1940 Sex: F Assigned Patient Location: MS Current Patient Location: MS Accession/Order Number: [id number] Exam Date: 02/22/2023 08:50 Report Date: 02/22/2023 09:22 At the request of: CATHLEEN BOO Procedure: XR chest 2V EXAM: XR chest 2V HISTORY: dyspnea COMPARISON: 01/29/2023 TECHNIQUE: PA and lateral views of the chest. Findings/impression: Cardiomegaly with congestion and edema. Superimposed pneumonia cannot be excluded. Bilateral pleural effusions. No pneumothorax. Stable osseous structures. Left-sided cardiac pacemaker. Electronically authenticated by: JESSIKA CHO Date: 02/22/2023 09:22
[2023-02-22] MEDS: BUMETANIDE 1 MG TABLET PO (09:28)
[2023-02-22] MEDS: MAGNESIUM OXIDE 400 MG TABLET PO (09:28)
[2023-02-22] MEDS: OMEPRAZOLE 40 MG CAPSULE.DR PO (09:29)
[2023-02-22] MEDS: FERROUS SULFATE 325 MG TABLET PO ×2 (09:29→22:02)
[2023-02-22] MEDS: APIXABAN 5 MG TABLET 2.5 MG PO ×2 (09:29→22:03)
[2023-02-22] MEDS: SPIRONOLACTONE 25 MG TABLET PO (09:29)
[2023-02-22] MEDS: ENSURE HP 237 ML LIQUID PO (09:30)
--- NOTE | 2023-02-22 09:37 | PC.NURSE ---
notified physician of chest xray, venous doppler, and abdominal us results, no new orders at this time
--- NOTE | 2023-02-22 10:32 | W.PM.WC ---
Wound Consult Note Assessment and Plan (1) Congestive heart failure: (2) Atrial fibrillation: (3) Chronic kidney disease (CKD): (4) Sacral decubitus ulcer, stage II: Reason for Consult: Sacral ulcer Stage 3 pressure injury Skin tear left buttocks Incontinence Associated Dermatitis Assessment and Plan: Patient sitting up in chair with OT at bedside. OT assisted patient to stand with walker for skin assessment. Patient incontinent of stool and there is a folded duoderm on the coccyx/sacral area. Small amount of brown soft stool on underpad. Patient perineal skin cleansed with soap and warm water. Changed underpad. Patient with complaints of area being sore to sit and does not appear to have healed much since her last admission. She states she sits on a cushion with a hole in it at the nursing facility. Patient is using duoderm that is folding and causing more pressure to the area. This was removed for skin assessment today. Patient with 2 open areas on coccyx/sacral area. There is a small skin bridge between the two open areas. The more proximal area is slough covered, the more distal is open with pale wound bed and undermines beneath the proximal ulcer. Due to undermining and depth, this is classified as a stage 3. Overall measurements of both areas together 2.3cmx1.6cmx0.6cm with undermining to distal open area. Patient has a skin tear to left buttocks due to duoderm treatment. Patient also has some excoriated skin due to incontinence to perineal area. (5) Hyperthyroidism determined by thyroid function test: (6) Chest pain: Plan Discussed treatment plan with Dr. Carson. He will go and see patient today for assessment and if any surgical debridement is needed. Treatment plan at this time will be triad paste to skin tear to left buttocks and to perineal area daily. Medihoney gel to coccyx wound and cover with ABD until Dr. Carson assesses patient today, no tape. Air cushion to chair and bed. Unable to take photos today due to technical issues. Please call [phone] with any questions or concerns.
--- NOTE | 2023-02-22 10:52 | SWNOTE1 ---
FRANKO stopped in to talk with pt, physical therapy and student in room as well. FRANKO asked pt if she was at [facility] or home. Pt was at [facility] for rehab. SW to check with [facility]. Pt's plan is to return at discharge. She stated tomorrow is what doctor said.
[2023-02-22] MEDS: [UNRECOGNIZED DRUG - OTHER] IM (11:10)
[2023-02-22] MEDS: METOPROLOL SUCCINATE 50 MG TAB.ER.24H PO (11:10)
[2023-02-22 11:27] LABS: Glucometer 171 mg/dL (74-106)
--- NOTE | 2023-02-22 11:43 | P.CACN_ITS ---
History of Present Illness History of Present Illness Consult date: 02/22/23 Requesting physician: Chi Jaimes Consult reason: atrial fibrillation and congestive heart failure Chief complaint: CHEST PAIN Narrative: Luna is an 82-year-old female with past medical history of CAD s/p PCI to RCA in 2003, A-fib with RVR s/p ablation complicated by perforation, HFrEF, CKD She came to [facility] with complaints of chest pain and shortness of breath. She was found to be in acute decompensated heart failure with significant pleural effusions and acute hypoxia. Her oxygen saturations were 83% on admission. She was trialed on IV diuretics with minimal diuretic response. Kidney function continues decline with minimal urine output. Labs 02/22/2023 sodium 137, K4.3, chloride 99, BUN 62, creatinine 2.4, GFR 19, lactate 2.7. She also has elevated LFTs given her history of cholecystitis s/p T-tube which was complicated by dislodgment. Last echocardiogram 01/28/2023 shows EF 15%. ECG on admission shows A-fib rate controlled I discussed plan with Dr. Leon recommend this patient to be transferred to [facility] for right heart cath And potential AV node ablation if she has RVR Awaiting last clinic office was 61.7 kg and her weight inpatient is 60.4 kg showing a significant weight gain indicative of HFrEF Review of Systems ROS Constitutional Reports: change in weight Cardiovascular Reports: chest pain, edema, swelling of feet/ankles, shortness of breath with exertion and shortness of breath when lying down (on o2) [facility] Medical History (Updated 02/20/23 @ 14:13 by Santiago Ruvalcaba) Anxiety ?F41.9 - Anxiety disorder, unspecified (ICD-10) Arthritis ?M19.90 - Unspecified osteoarthritis, unspecified site (ICD-10) Asthma ?J45.909 - Unspecified asthma, uncomplicated (ICD-10) Cholecystitis ?K81.9 - Cholecystitis, unspecified (ICD-10) Complication of surgery ?T81.9XXA - Unspecified complication of procedure, initial encounter (ICD-10) Diabetes ?E11.9 - Type 2 diabetes mellitus without complications (ICD-10) Diverticulosis ?K57.90 - Diverticulosis of intestine, part unspecified, without perforation or abscess without bleeding (ICD-10) High blood cholesterol ?E78.00 - Pure hypercholesterolemia, unspecified (ICD-10) History of left heart catheterization ?Z98.890 - Other specified postprocedural states (ICD-10) HTN (hypertension) ?I10 - Essential (primary) hypertension (ICD-10) Hx of essential hypertension ?Z86.79 - Personal history of other diseases of the circulatory system (ICD- 10) managing director associated with adverse incidents ?Y82.9 - Unspecified medical devices associated with adverse incidents (ICD- 10) Myocardial infarction ?I21.9 - Acute myocardial infarction, unspecified (ICD-10) Normal colonoscopy Pacemaker ?Z95.0 - Presence of cardiac pacemaker (ICD-10) Paroxysmal atrial fibrillation ?I48.0 - Paroxysmal atrial fibrillation (ICD-10) Pneumonia ?J18.9 - Pneumonia, unspecified organism (ICD-10) Surgical History (Updated 02/20/23 @ 15:42 by Lanette Corrigan) History of biliary T-tube placement ?Z98.890 - Other specified postprocedural states (ICD-10) History of bladder surgery ?Z98.890 - Other specified postprocedural states (ICD-10) History of cardiac radiofrequency ablation ?Z98.890 - Other specified postprocedural states (ICD-10) History of hysterectomy ?Z90.710 - Acquired absence of both cervix and uterus (ICD-10) History of open heart surgery ?Z98.890 - Other specified postprocedural states (ICD-10) History of radiofrequency ablation procedure for cardiac arrhythmia ?Z98.890 - Other specified postprocedural states (ICD-10) History of revision of total knee arthroplasty ?Z96.659 - Presence of unspecified artificial knee joint (ICD-10) History of thoracentesis ?Z98.890 - Other specified postprocedural states (ICD-10) History of total knee arthroplasty ?Z96.659 - Presence of unspecified artificial knee joint (ICD-10) Hx of hernia repair ?Z98.890 - Other specified postprocedural states (ICD-10) ?Z87.19 - Personal history of other diseases of the digestive system (ICD-10) S/P appy ?Z90.49 - Acquired absence of other specified parts of digestive tract (ICD- 10) Status post pericardiocentesis ?Z98.890 - Other specified postprocedural states (ICD-10) Social History Smoking status: Never smoker Meds Home Medications and Allergies Home Medications Medication Instructions Recorded Confirmed Type apixaban 2.5 mg tablet (Eliquis) 2.5 mg PO BID 12/24/22 02/20/23 History bumetanide 2 mg tablet 2 mg PO Q12H 12/24/22 02/21/23 History magnesium oxide 400 mg PO DAILY 12/24/22 02/20/23 History polyethylene glycol 3350 17 17 g PO DAILY constipation 12/24/22 02/20/23 History gram/dose oral powder hydroxyzine pamoate 25 mg capsule 25 mg PO Q6H PRN anxiety 01/28/23 02/20/23 History midodrine 5 mg tablet 5 mg PO BID PRN SBP <100 01/28/23 02/20/23 History metoprolol succinate 25 mg 50 mg PO DAILY 01/29/23 02/20/23 History tablet,extended release 24 hr (Toprol XL) atorvastatin 80 mg tablet 80 mg PO .HS 02/20/23 02/21/23 History dapagliflozin propanediol 10 mg 10 mg PO DAILY 02/20/23 02/20/23 History tablet (Farxiga) guaifenesin 1,200 mg tablet, 1,200 mg PO BID 02/20/23 02/20/23 History extended release 12 hr (Mucinex) insulin aspart U-100 100 unit/mL 1 sliding scale dose subcut 02/20/23 02/20/23 History (3 mL) subcutaneous pen (Novolog USEASDIRECTD FlexPen U-100 Insulin aspart) ipratropium 0.5 mg-albuterol 3 mg 3 ml inhalation BID 02/20/23 02/21/23 History (2.5 mg base)/3 mL nebulization soln methimazole 10 mg tablet 10 mg PO TID 02/20/23 02/20/23 History ondansetron 4 mg disintegrating 4 mg PO Q4H PRN nausea and vomiting 02/20/23 02/20/23 History tablet pantoprazole 40 mg tablet,delayed 40 mg PO DAILY 02/20/23 02/20/23 History release potassium chloride 20 mEq 40 meq PO DAILY 02/20/23 02/20/23 History tablet,extended release(part/cryst) (Klor-Con M) propylene glycol 1 %-glycerin 0.3 1 drp ophthalmic (eye) BID PRN dry 02/20/23 02/20/23 History % eye drops (Artificial Tears eye(s) (glycerin-peg)) trazodone 50 mg tablet 50 mg PO .QHS 02/20/23 02/21/23 History Allergies Allergy/AdvReac Type Severity Reaction Status Date / Time No Known Drug Allergies Allergy Verified 11/13/22 17:08 Exam Constitutional Vital Signs, click to edit/add: Last Vital Signs Temp 98.1 F 02/22/23 05:02 Pulse 86 02/22/23 10:00 Resp 18 02/22/23 05:02 BP 102/69 02/22/23 05:02 Pulse Ox 93 L 02/22/23 05:02 O2 Del Method Room Air 02/22/23 05:02 O2 Flow Rate 0.5 02/21/23 23:49 Common normals: oriented x3 and alert General appearance: cooperative Orientation/consciousness: Yes awake, Yes oriented to person, Yes oriented to place and Yes oriented to time Eye Common normals: PERRL General eye: normal appearance of both eyes Respiratory Effort & inspection: able to speak in complete sentences and uses accessory muscles Auscultation: rales and diminished lung sounds (at bases, left more diminished than right ) bilateral Cardio Common normals: regular rate Rate: regular rate Rhythm: abnormal rhythm Results Labs and Meds Lab results: Cardiac Enzymes 02/22/23 Range/Units 05:31 AST 61 H (15-37) U/L CBC 02/22/23 Range/Units 05:31 WBC 10.2 (4.0-11.0) 10^3/uL RBC 3.59 L (4.20-5.40) 10^6/uL Hgb 10.4 L (12.0-16.0) g/dL Hct 34.1 L (36.0-48.0) % Plt Count 215 (150-450) 10^3/uL Neut # (Auto) 7.8 H (1.4-6.5) 10^3/uL Lymph # (Auto) 1.1 L (1.2-3.8) 10^3/uL [place] # (Auto) 1.2 H (0.3-0.8) 10^3/uL Eos # (Auto) 0.0 (0.0-0.7) 10^3/uL Baso # (Auto) 0.0 (0.0-0.1) 10^3/uL Comprehensive Metabolic Panel 02/22/23 Range/Units 05:31 Sodium 137 (136-145) mmol/L Potassium 4.3 (3.5-5.1) mmol/L Chloride 99 (98-107) mmol/L Carbon Dioxide 31.6 (21.0-32.0) mmol/L BUN 62.0 H (7.0-18.0) mg/dL Creatinine 2.40 H (0.55-1.02) mg/dL Glucose 120 H (74-106) mg/dL Calcium 10.3 H (8.5-10.1) mg/dL AST 61 H (15-37) U/L ALT 63 H (14-59) U/L Alkaline Phosphatase 273 H (46-116) U/L Total Protein 6.5 (6.4-8.2) g/dL Albumin 2.7 L (3.4-5.0) g/dL Intake and Output 02/21/23 02/22/23 02/22/23 23:59 07:59 15:59 Intake Total 400 / 880 240 / 880 120 / 120 Output Total 150 / 450 250 / 450 Balance 250 / 430 -10 / 430 120 / 120 Intake: Oral 240 / 480 120 / 120 Other 200 / 200 IV 200 / 200 Bumetanide 10 mg In 0.9 % 200 / 200 Sodium Chloride 160 ml @ 20 mls /hr IV ONCE ONE Rx#:[id number] Output: Urine Amount (Catheter) 150 / 450 250 / 450 Urethral 150 / 450 250 / 450 Other: # Bowel Movements 1 1 Weight 68.4 kg Imaging and Cardiology Echo: report reviewed (previous reviewed ) EKG Interpretation ECG shows: atrial fibrillation Assessment and Plan Assessment and Plan (1) Congestive heart failure: Assessment and Plan: HfrEF NYHA IV -she is going to require transfer to [facility] for RHC given HFrEF and worsening kidney function -consider metazolne , she was given one time 2mg IV push 02/22, will see how she responds ProBNP >861944 (2) Atrial fibrillation: Assessment and Plan: no RVR noted, ct to monitor , aim for rate control (3) Chronic kidney disease (CKD): Assessment and Plan: recomend nephrology consult, will need nephro consult at [facility] if she transfers (4) Sacral decubitus ulcer, stage II: (5) Hyperthyroidism determined by thyroid function test: (6) Chest pain: Plan BNP>001597, elevated trop Acute decompensated HFrEF complicated by CKD/JOLEEN - Cardiorenal -may have DVT in LLE per doppler -transfer to [facility] for RHC / CHF / JOLENE
--- NOTE | 2023-02-22 12:03 | SWNOTE1 ---
FRANKO sent email to [facility] to check if pt was there skilled. Pierre at [facility] let FRANKO know that pt is there skilled, but she was supposed to be discharged home soon and not able to be. [facility] was working on getting her to [facility] with pending medicaid since they have no long-term medicaid beds available. FRANKO asked Pierre if the family or patient knew about this? Pierre is checking with [facility] to see and will get back to FRANKO. FRANKO spoke with Anastasia at [facility] and she was not aware of the pt coming long-term, but she will check and see.
--- NOTE | 2023-02-22 13:03 | RESP.RT ---
patient placed on 2 L nasal cannula
[2023-02-22] MEDS: METHIMAZOLE 5 MG TABLET 15 MG PO ×2 (13:27→22:02)
--- NOTE | 2023-02-22 14:42 | SWNOTE1 ---
SW stopped in to talk with pt and family again. Pt's sister and niece were in room. 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 Pt and family in room were not aware. SW did explain to pt that it may be due to her being near the end of her medicare days for rehab. SW then explained that [facility] likely does not have any [facility] med[facility] beds and that is why they are working on getting her to [facility]. Pt's sister did voice that does make sense and it may be right. Pt did voice she did apply for medicaid and the only thing they have left to do is get something from the bank that is notarized. Pt stated her grand-daughter Amy helps make these decisions with her. SW asked permission to call her. Pt gave permission to call grand-daughter. SW still waiting to hear back from [facility].
--- NOTE | 2023-02-22 15:11 | SWNOTE1 ---
FRANKO did reach out to Amy the grand-daughter. SW asked her if she knew anything about pt possibly going to [facility] due to them having medicaid beds and [facility] not having them. She was somewhat aware of pt not having medicare days left for rehab. Amy did express that pt does have 3 sons and she does help out in regards to medical decisions, but since this is more financial she has stepped back, but always willing to answer questions and assist. FRANKO did ask if they have a preference other than [facility] if pt is not able to go back to [facility] until medicaid comes through? Grand-daughter voiced pt will likely want to stay local, but it is truly up to pt. At this point FRANKO is calling Pita at [facility], the social media director, to see what the discharge plan is. FRANKO had to leave message.
--- NOTE | 2023-02-22 16:11 | SWNOTE1 ---
FRANKO spoke with Shauna the SW at [facility]. Pita spoke with Amy (grand-daughter) and she is going to talk with pt tonight and see where pt would like to go at discharge. SW to check with [facility] in morning.
[2023-02-22 16:17] LABS: Glucometer 158 mg/dL (74-106)
--- NOTE | 2023-02-22 16:28 | SWNOTE1 ---
Pt is now possibly getting transferred. SW let pt know her grand-daughter will be over after work to talk to her.
--- NOTE | 2023-02-22 17:36 | NUTR.NU ---
Pt has experienced progressive weight loss x 4 months; CBW remains WNR for age per BMI 27.8. PO intakes in-house appear to meet Luna's estimated nutritional needs. Diet and weight will be managed by LTC facility upon discharge from [facility]. Nutrition assessment to follow.
[2023-02-22 20:21] LABS: Glucometer 178 mg/dL (74-106)
[2023-02-22] MEDS: ACETAMINOPHEN 325 MG TABLET 650 MG PO (20:27)
[2023-02-22] MEDS: INSULIN ASPART 300 UNIT/3 ML PEN SUBQ (22:01)
[2023-02-22] MEDS: ATORVASTATIN CALCIUM 40 MG TABLET 80 MG PO (22:02)
[2023-02-22] MEDS: TRAZODONE HCL 50 MG TABLET PO (22:02)
[2023-02-23] VITALS (15 sets, daily range): BP systolic 107–125; BP diastolic 66–85; PULSE 82–96; RESP 18–20; TEMP 36.6–36.8; O2SAT 94–99
[2023-02-23 06:03] LABS: Basophils Percent Auto 0.1 % (0.2-2.0); Eosinophils Percent Auto 0.2 % (0.9-7.0); Hematocrit 33.6 % (36.0-48.0); Hemoglobin 10.3 g/dL (12.0-16.0); Immature Granulocytes Abs Auto 0.07 10^3/uL (0.00-0.03); Immature Granulocytes Pct Auto 0.6 % (0.0-0.5); Lymphocytes Percent Auto 9.4 % (20.5-60.0); Mean Corpuscular HGB Conc 30.7 g/dL (29.9-35.2); Mean Corpuscular Hemoglobin 28.8 pg (26.7-34.0); Mean Corpuscular Volume 93.9 fL (81.0-99.0); Mean Platelet Volume 11.3 fL (9.5-13.5); Monocytes Absolute Auto 1.2 10^3/uL (0.3-0.8); Monocytes Percent Auto 11.3 % (1.7-12.0); Neutrophils Absolute Auto 8.6 10^3/uL (1.4-6.5); Neutrophils Percent Auto 78.4 % (43.0-75.0); Platelet Count 227 10^3/uL (150-450); Red Blood Count 3.58 10^6/uL (4.20-5.40); Red Cell Distribution Width 17.8 % (11.0-15.0); White Blood Count 10.9 10^3/uL (4.0-11.0)
[2023-02-23 06:10] LABS: Magnesium 2.2 mg/dL (1.8-2.4)
[2023-02-23 06:16] LABS: Alanine Aminotransferase 51 U/L (14-59); Albumin Globulin Ratio 0.8; Albumin Level 2.7 g/dL (3.4-5.0); Alkaline Phosphatase 265 U/L (46-116); Anion Gap 11.1; Aspartate Amino Transferase 42 U/L (15-37); BUN Creatinine Ratio 28.4; Bilirubin Total 1.7 mg/dL (0.2-1.0); Calcium 11.1 mg/dL (8.5-10.1); Carbon Dioxide 31.6 mmol/L (21.0-32.0); Chloride 94 mmol/L (98-107); Estimated GFR (African America 22 (>=60); Estimated GFR (Non-African Ame 18 (>=60); Globulin 3.6 g/dL; Glucose 119 mg/dL (74-106); Potassium 3.7 mmol/L (3.5-5.1); Sodium 133 mmol/L (136-145); Total Protein 6.3 g/dL (6.4-8.2)
[2023-02-23 06:33] LABS: NT Pro B Type Natriuretic Pept >35000.0 pg/mL (<=1800.0)
--- NOTE | 2023-02-23 07:21 | P.DS_ITS ---
DS: Providers Provider Date of admission: 02/20/23 14:25 Primary care physician: Chi Jaimes MD Consults: 02/20/23 Consult to Dietitian Routine Reason For Exam: decreased appetite and weight loss Reason for consultation: decreased appetite Has provider been notified: No 02/21/23 08:21 Consult to Cardiology Routine Consulting Provider: Jose Gaitan Reason for consultation: wednesday is great Has provider been notified: No 02/22/23 08:39 Occupational Therapy Eval and Treat Routine Reason for consultation: if neeeded for return to rehab Has provider been notified: No Physical Therapy Eval and Treat Routine Reason for consultation: weakness Has provider been notified: No DS: Diagnosis Discharge Diagnosis (1) Congestive heart failure: (2) Atrial fibrillation: (3) Chronic kidney disease (CKD): (4) Sacral decubitus ulcer, stage II: (5) Hyperthyroidism determined by thyroid function test: (6) Chest pain: Plan Acute hypoxic respiratory failure with O2 saturations of 83% on room air secondary to bilateral pleural effusions, elevated LFTs secondary to passive congestion resulting from acute combined congestive heart failure Elevated LFTs-known history of cholecystitis, Hyperthyroidism- Iron deficiency anemia- Bilateral pleural effusions-secondary to above History of UTI- Moderate protein calorie malnutrition- DS: Summary Hospital Course Hospital Course: Patient with increasing shortness of breath and some mild chest pain at the group home. Transferred to the ER. In ER found to have elevated BNP, pleural effusions, peripheral edema consistent with acute combined congestive heart failure. She was given 2 doses of IV Lasix without significant improvement. She was placed on a Bumex drip with again without significant urinary output. Consultation to cardiology. Patient is recommended for right heart cath. We transferred to [facility] for continued care. Other issues are elevated LFTs and possible acute cholecystitis, patient without pain but with the elevated enzymes he is to have that further evaluated. Patient still in a hyperthyroid state. Methimazole was increased here. Further work-up at [facility] will be warranted. I will follow patient discharged from [facility] Time Spent with Patient Time attestation: Total time spent providing and/or coordinating discharge services: Exam Constitutional Vital Signs, click to edit/add: Last Vital Signs Temp 97.9 F 02/23/23 04:54 Pulse 87 02/23/23 04:54 Resp 18 02/23/23 04:54 BP 120/79 02/23/23 04:54 Pulse Ox 97 02/23/23 05:26 O2 Del Method Nasal Cannula 02/23/23 05:26 O2 Flow Rate 1 02/23/23 05:26 Documenting provider has reviewed patient's vital signs: yes Common normals: no apparent distress HENMT Common normals: normocephalic and head/scalp atraumatic Chest Common normals: inspection of chest normal Respiratory Common normals: normal respiratory effort Effort & inspection: able to speak in complete sentences Auscultation: rales and breath sounds absent Cardio Common normals: regular rate; irregular rhythm Rhythm: abnormal rhythm Extremity Common normals: abnormal to inspection General: edema (2-3 + edema) DS: Data Data Completed and Pending Labs on day of discharge: Labs from last 24 hours 02/23/23 02/22/23 02/22/23 05:30 20:19 16:16 WBC 10.9 RBC 3.58 L Hgb 10.3 L Hct 33.6 L MCV 93.9 MCH 28.8 MCHC 30.7 RDW 17.8 H Plt Count 227 MPV 11.3 Neut % (Auto) 78.4 H Lymph % (Auto) 9.4 L [place] % (Auto) 11.3 Eos % (Auto) 0.2 L Baso % (Auto) 0.1 L Neut # (Auto) 8.6 H Lymph # (Auto) 1.0 L [place] # (Auto) 1.2 H Eos # (Auto) 0.0 Baso # (Auto) 0.0 Abs Immat Gran (auto) 0.07 H Imm/Tot Granulo (auto) 0.6 H Sodium 133 L Potassium 3.7 Chloride 94 L Carbon Dioxide 31.6 Anion Gap 11.1 BUN 71.0 H Creatinine 2.50 H Est GFR ( Amer) 22 L Est GFR (Non-Af Amer) 18 L BUN/Creatinine Ratio 28.4 Glucose 119 H Calcium 11.1 H Magnesium 2.2 Total Bilirubin 1.7 H AST 42 H ALT 51 Alkaline Phosphatase 265 H NT-Pro-B Natriuret Pep >18048.0 H* Total Protein 6.3 L Albumin 2.7 L Globulin 3.6 Albumin/Globulin Ratio 0.8 POC Glucose 178 H 158 H 02/22/23 02/22/23 11:26 05:31 WBC RBC Hgb Hct MCV MCH MCHC RDW Plt Count MPV Neut % (Auto) Lymph % (Auto) [place] % (Auto) Eos % (Auto) Baso % (Auto) Neut # (Auto) Lymph # (Auto) [place] # (Auto) Eos # (Auto) Baso # (Auto) Abs Immat Gran (auto) Imm/Tot Granulo (auto) Sodium Potassium Chloride Carbon Dioxide Anion Gap BUN Creatinine Est GFR ( Amer) Est GFR (Non-Af Amer) BUN/Creatinine Ratio Glucose Calcium Magnesium Total Bilirubin AST ALT Alkaline Phosphatase NT-Pro-B Natriuret Pep >51880.0 H* Total Protein Albumin Globulin Albumin/Globulin Ratio POC Glucose 171 H Discharge Plan Discharge Disposition: er Acute Care Hospital Discharge Medications: No Action bumetanide 2 mg tablet 2 mg PO Q12H Eliquis 2.5 mg tablet 2.5 mg PO BID magnesium oxide 400 mg magnesium tablet 400 mg PO DAILY polyethylene glycol 3350 17 gram/dose powder 17 g PO DAILY midodrine 5 mg tablet 5 mg PO BID PRN (Reason: SBP <100) Patient Comments: FOR SBP <100 hydroxyzine pamoate 25 mg capsule 25 mg PO Q6H PRN (Reason: anxiety) metoprolol succinate [Toprol XL] 25 mg tablet extended release 24 hr 50 mg PO DAILY atorvastatin 80 mg tablet 80 mg PO .HS Farxiga 10 mg tablet 10 mg PO DAILY methimazole 10 mg tablet 10 mg PO TID pantoprazole 40 mg tablet,delayed release (DR/EC) 40 mg PO DAILY insulin aspart U-100 [Novolog FlexPen U-100 Insulin] 100 unit/mL (3 mL) insulin pen 1 sliding scale dose subcut USEASDIRECTD trazodone 50 mg tablet 50 mg PO .QHS ipratropium-albuterol 0.5 mg-3 mg(2.5 mg base)/3 mL solution for nebulization 3 ml inhalation BID Rx Instructions: BID SCHEDULED AND BID PRN FOR SOB ondansetron 4 mg tablet,disintegrating 4 mg PO Q4H PRN (Reason: nausea and vomiting) Rx Instructions: give 1st dose 30min before emetogenic chemo Artificial Tears(glycerin-peg) 1-0.3 % drops 1 drp ophthalmic (eye) BID PRN (Reason: dry eye(s)) Mucinex 1,200 mg tablet extended release 12hr 1,200 mg PO BID potassium chloride [Klor-Con M20] 20 mEq tablet,ER particles/crystals 40 meq PO DAILY
[2023-02-23] MEDS: ENSURE HP 237 ML LIQUID PO (08:46)
[2023-02-23] MEDS: ONDANSETRON PF 4 MG/2 ML VIAL IV (08:46)
[2023-02-23] MEDS: APIXABAN 5 MG TABLET PO (08:47)
[2023-02-23] MEDS: METOPROLOL SUCCINATE 50 MG TAB.ER.24H PO (08:47)
[2023-02-23] MEDS: MAGNESIUM OXIDE 400 MG TABLET PO (08:47)
[2023-02-23] MEDS: SPIRONOLACTONE 25 MG TABLET PO (08:47)
[2023-02-23] MEDS: FERROUS SULFATE 325 MG TABLET PO (08:47)
[2023-02-23] MEDS: BUMETANIDE 1 MG TABLET PO (08:47)
[2023-02-23] MEDS: OMEPRAZOLE 40 MG CAPSULE.DR PO (08:47)
--- NOTE | 2023-02-23 10:03 | SWNOTE1 ---
SW notified [facility] that pt is being transferred to [facility].
--- NOTE | 2023-02-23 10:40 | SWNOTE1 ---
SW reviewed Important Message from Medicare form with pt. She voiced understanding and did not have any questions. Pt signed form, original given to pt and copy placed in chart. Pt asked if she could get back in bed. SW notified nursing.
[2023-02-23 10:53] LABS: Glucometer 133 mg/dL (74-106)
--- NOTE | 2023-02-23 11:23 | RESP.RT ---
Patient asleep. No distress noted
[2023-02-23] MEDS: IPRATROPIUM/ALBUTEROL SULFATE 3 ML AMPUL.NEB IH (12:46)
[2023-02-23] MEDS: HYDROMORPHONE HCL 0.5 MG/0.5 ML SYRINGE IV (13:27)
[2023-02-23 15:52] LABS: Glucometer 129 mg/dL (74-106)
--- NOTE | 2023-02-23 16:34 | PT.DAILY ---
Physical Therapy Daily Note PT Daily Note/Assess Start: 02/23/23 16:33 Freq: Status: Active Protocol: Document 02/23/23 11:00 COLBY (Rec: 02/23/23 16:34 COLBY [id number]) Visit Not Completed Visit Not Completed Visit Not Completed Due to: Other Other Reason Visit Not Completed Patient is awaiting transfer to [facility], is not having a good day, did sit up in chair this morning was back to bed and not up for therapy at this time. Physical Therapy Daily Note/Assessment Time In/Time Out Time In 11:00 Time Out 11:00 GG. Functional Abilities and Goals-Complete for Swing Bed Patients Only [id number]. Self-Care [id number]. Mobility
--- NOTE | 2023-02-23 21:20 | PC.NURSE ---
Patient report called into [facility] .Given to nurse Vivian at extension [phone]. Going to room 5272
== END 2023-02-23 20:28 | disposition short-term general hospital (02) | DRG 291 ==
LOC: ER 14:13 → ICU 14:26 → MS 02-21 14:30
PROVIDERS: Internal Medicine; Admitting Provider Family Medicine; Emergency Provider Emergency Medicine; PCP Family Medicine; Visit Provider Family Medicine
DX: I13.0 Hypertensive heart and chronic kidney disease with heart failure and stage 1 through stage 4 chronic kidney disease, or unspecified chronic kidney disease (principal); I50.41 Acute combined systolic (congestive) and diastolic (congestive) heart failure; J96.01 Acute respiratory failure with hypoxia; E44.0 Moderate protein-calorie malnutrition; N18.9 Chronic kidney disease, unspecified; E11.22 Type 2 diabetes mellitus with diabetic chronic kidney disease; L89.152 Pressure ulcer of sacral region, stage 2; I48.0 Paroxysmal atrial fibrillation; D50.9 Iron deficiency anemia, unspecified; E78.00 Pure hypercholesterolemia, unspecified; E03.9 Hypothyroidism, unspecified; J45.909 Unspecified asthma, uncomplicated; M19.90 Unspecified osteoarthritis, unspecified site; F41.9 Anxiety disorder, unspecified; R94.5 Abnormal results of liver function studies; K57.90 Diverticulosis of intestine, part unspecified, without perforation or abscess without bleeding; Z96.659 Presence of unspecified artificial knee joint; Z68.29 Body mass index [BMI] 29.0-29.9, adult; I25.2 Old myocardial infarction; Z87.440 Personal history of urinary (tract) infections; Z87.01 Personal history of pneumonia (recurrent); Z79.01 Long term (current) use of anticoagulants; Z79.4 Long term (current) use of insulin; Z79.899 Other long term (current) drug therapy; Z95.0 Presence of cardiac pacemaker; Z90.710 Acquired absence of both cervix and uterus; Z90.49 Acquired absence of other specified parts of digestive tract; Z98.890 Other specified postprocedural states
CPT/HCPCS: 36415; 51702; 51798; 71045; 71046; 76705; 80048; 80053; 81001; 82948; 83735; 83880; 84436; 84443; 84484; 85025; 87086; 90732; 93005; 93308; 93970; 94640; 94761; 96365; 96366; 96375; 96376; 97162; 97165; 99285; G0009; J1170